=== PATIENT | female | born 1935 | race Caucasian/White ===

== ENCOUNTER → 2017-02-11 | Outpatient (CLI) | payer MEDICARE ==
--- NOTE | 2017-02-12 10:39 | RAD ---
DATE: 02/11/2017 EXAM: DIGITAL SCREEN BILAT W/CAD HISTORY: Routine screening COMPARISON: 01/30/2016 This study was interpreted with the benefit of Computerized Aided Detection (CAD). FINDINGS: Breast Density: DENSE The breast Parenchyma is dense, which could reduce the sensitivity of mammography. Breast parenchyma level density D.. There are no dominant suspicious masses, suspicious microcalcifications or evidence of architectural distortion. Benign-appearing calcifications identified in the bilateral breasts. IMPRESSION: Benign findings BI-RADS CATEGORY: 2 BENIGN FINDING RECOMMENDED FOLLOW-UP: 12M 12 MONTH FOLLOW-UP PQRS compliance statement: Patient information was entered into a reminder system with a target due date 02/11/2018 for the next mammogram. Mammography is a sensitive method for finding small breast cancers, but it does not detect them all and is not a substitute for careful clinical examination. A negative mammogram does not negate a clinically suspicious finding and should not result in delay in biopsying a clinically suspicious abnormality. "Our facility is accredited by the [employer] Mammography [employer]."
== END | disposition home or self-care (01) ==
LOC: MAMMO 08:39
PROVIDERS: ATTEND Family Medicine
DX: Z12.31 Encounter for screening mammogram for malignant neoplasm of breast (principal)
CPT/HCPCS: G0202; 77067

== ENCOUNTER → 2018-02-15 | Outpatient (CLI) | payer MEDICARE | END | disposition home or self-care (01) | LOC: MAMMO 08:44 | DX: Z12.31 Encounter for screening mammogram for malignant neoplasm of breast (principal) | CPT/HCPCS: 77063; 77067 ==

== ENCOUNTER → 2019-02-16 | Outpatient (CLI) | payer MEDICARE ==
--- NOTE | 2019-02-16 11:30 | RAD ---
DATE: 02/16/2019 EXAM: MAMMO MOUNA SCREENING BILATERAL HISTORY: Routine screening COMPARISON: 02/15/2018 This study was interpreted with the benefit of Computerized Aided Detection (CAD). Breast Density: HETERO The breast parenchyma is heterogenously dense, which could reduce sensitivity of mammography. Breast parenchyma level C. FINDINGS: 2-D and 3-D tomosynthesis imaging was performed in CC and MLO projections. No new or enlarging breast densities are seen. There are scattered benign type calcifications. No suspicious microcalcifications have developed. IMPRESSION: Stable mammograms without evidence of malignancy. BI-RADS CATEGORY: 2 BENIGN FINDING(S) RECOMMENDED FOLLOW-UP: 12M 12 MONTH FOLLOW-UP PQRS compliance statement: Patient information was entered into a reminder system with a target due date for the next mammogram. Mammography is a sensitive method for finding small breast cancers, but it does not detect them all and is not a substitute for careful clinical examination. A negative mammogram does not negate a clinically suspicious finding and should not result in delay in biopsying a clinically suspicious abnormality. "Our facility is accredited by the [employer] Mammography [employer]."
== END | disposition home or self-care (01) ==
LOC: MAMMO 10:04
PROVIDERS: ATTEND Family Medicine
DX: Z12.31 Encounter for screening mammogram for malignant neoplasm of breast (principal); N64.89 Other specified disorders of breast
CPT/HCPCS: 77063; 77067

== ENCOUNTER → 2020-05-07 | Outpatient (CLI) | payer MEDICARE ==
--- NOTE | 2020-05-07 17:29 | RAD ---
DATE: 05/07/2020 8:20 AM EXAM: MAMMO MOUNA SCREENING BILATERAL HISTORY: Screening COMPARISON: 02/11/2017, 02/15/2018 and 02/16/2019 Bilateral CC and MLO views of the breasts were performed. Bilateral breast tomosynthesis was performed in CC and MLO projections. This study was interpreted with the benefit of Computerized Aided Detection (CAD). FINDINGS: Breast Density: HETERO The breast parenchyma Is heterogeneously dense, which could reduce sensitivity of mammography. Breast parenchyma level C Negative right mammogram. Focal asymmetry left breast best appreciated on the tomographic views on image 29 of the CC series and image 30 of the MLO series is present with questionable associated architectural distortion. This needs additional imaging with spot compression views in the CC and MLO views with possible targeted ultrasound of the lateral and upper outer quadrant left breast. IMPRESSION: Left breast focal asymmetry, findings for which additional imaging is advised. BI-RADS CATEGORY: 0 INCOMPLETE: NEEDS ADDITIONAL IMAGING EVALUATION AND/OR PRIOR MAMMOGRAMS FOR COMPARISON. RECOMMENDED FOLLOW-UP: ADD ADDITIONAL IMAGING The patient will be contacted to return for additional imaging and a supplemental report will follow. PQRS compliance statement: Patient information was entered into a reminder system with a target due date for the next mammogram. Mammography is a sensitive method for finding small breast cancers, but it does not detect them all and is not a substitute for careful clinical examination. A negative mammogram does not negate a clinically suspicious finding and should not result in delay in biopsying a clinically suspicious abnormality. "Our facility is accredited by the [employer] Mammography [employer]."
== END | disposition home or self-care (01) ==
LOC: MAMMO 08:16
PROVIDERS: ATTEND Family Medicine
DX: Z12.31 Encounter for screening mammogram for malignant neoplasm of breast (principal)
CPT/HCPCS: 77063; 77067

== ENCOUNTER → 2020-05-17 | Outpatient (CLI) | payer MEDICARE ==
--- NOTE | 2020-05-17 11:57 | RAD ---
EXAM: 1. UNILATERAL LEFT DIGITAL DIAGNOSTIC MAMMOGRAPHY. 2. LEFT BREAST ULTRASOUND. HISTORY: Asymmetry on mammographic screening. Additional imaging is requested.. TECHNIQUE: Left full field digital images were obtained in CC and MLO projections with spot compression. Computer-aided detection was applied. Sonography of the left upper outer breast was also performed. COMPARISON: 02/16/2019, 05/07/2020. COMPOSITION: D. The breasts are extremely dense, which lowers the sensitivity of mammography. FINDINGS: The site of concern superolaterally on the left resolves to its former appearance on spot compression. Coarse and vascular calcifications appear benign. There is no suspicious mammographic finding. Sonography of the left upper outer breast reveals a shadowing focus corresponding with a 4.5 mm coarse calcification at the 3:00 position 2 cm from the nipple. There is no suspicious sonographic finding. Dense parenchymal islands are noted throughout the left upper outer quadrant. BI-RADS CATEGORY 2: Benign. RECOMMENDATION: 1. Resume bilateral screening mammography in one year. If mammography demonstrates dense breast tissue (heterogenously dense or extremely dense, category C or D), which could hide abnormalities, and if other risk factors for breast cancer have been identified, supplemental screening tests that may be suggested by the ordering physician may be of benefit. Dense breast tissue, in and of itself, is a relatively common condition. Therefore, this information is not provided to cause undue concern, but rather to raise awareness and to promote discussion with the referring physician regarding the presence of other risk factors, in addition to dense breast tissue. The results of this mammography examination is provided to the patient and referring physician. The patient should contact their referring physician if any questions or concerns exist regarding this report. PQRS compliance statement - Patient information was entered into a reminder system with a target due date for the next mammogram. "Our facility is accredited by the [employer] Mammography [employer]." Electronically signed by: Ridge Mendoza MD (05/17/2020 11:55 AM) [id number]
== END | disposition home or self-care (01) ==
LOC: MAMMO 10:30
PROVIDERS: ATTEND Family Medicine
DX: R92.1 Mammographic calcification found on diagnostic imaging of breast (principal); N63.21 Unspecified lump in the left breast, upper outer quadrant
CPT/HCPCS: 76641; 77065

== ENCOUNTER 2021-01-22 09:20 | Emergency (ER) | payer MEDICARE ==
[~2021-01-22] VITALS: Ht 152.4 cm; Wt 59.0 kg
--- NOTE | 2021-01-22 10:35 | ED.ADGEN ---
Past Medical History Past Medical History: Cancer (basal cell carcinoma of nose), GERD, Hypertension, Renal Disease (stage 3 ckd) Past Surgical History: Other Additional Past Surgical Histo: basal cell carcinoma removed, benign breast cyst removed Smoking Status: Never Smoker Alcohol Use: None Drug Use: None General Adult EDM: Chief Complaint: DIZZY/LIGHT HEADED HPI: HPI: Patient is a 85 year old female brought to the emergency department by her daughter today with complaints of fatigue and lightheadedness that began this morning. Patient reports she also noticed that her thighs feel achy. Patient states that last night she had 2 episodes of vomiting and yesterday she had a few episodes of diarrhea. She denies any blood in her stool or her emesis. Patient reports that for the last month she has had a constant sensation of something being stuck in her throat but denies any difficulty swallowing foods or liquids. Patient denies any shortness of breath, chest pain, palpitations, vision changes, headache, numbness, tingling, abdominal pain, dysuria, hematuri a, or back pain. Patient has had some increased urinary frequency. She denies any fever, cough, shortness of breath, or nasal congestion. Patient reports she has had a runny nose lately when she wakes up in the morning her mouth is extremely dry. Patient's daughter states that earlier when her mother reported feeling lightheaded she had difficulty walking straight. Patient denies any sensation of the room spinning or difficulty speaking. She currently denies any pain. Review of Systems: Review of Systems: Complete ROS is negative unless otherwise noted in HPI. Current Medications: Current Medications Medications (Trade) Dose Ordered Sig/[facility] Start Time Stop Time Status Last Admin Dose Admin Magnesium Sulfate 50 ml @ 50 mls/hr 1X ONCE 01/22/21 13:15 01/22/21 14:14 DC Ondansetron HCl (Zofran) 4 mg 1X ONCE 01/22/21 11:30 01/22/21 11:31 DC Sodium Chloride 1,000 ml @ 1,000 mls/hr 1X ONCE 01/22/21 11:30 01/22/21 12:29 DC 01/22/21 14:05 1,000 MLS/HR Allergies: Allergies: Allergies Coded Allergies Type Severity Reaction Last Updated Verified Sulfa (Sulfonamide Antibiotics) Allergy Intermediate Unknown 01/22/21 Yes Uncoded Allergies Type Severity Reaction Last Updated Verified unspecified antibiotic Allergy Unknown Unknown 01/22/21 Physical Exam: PE: See Above Constitutional: Well developed, well nourished, no acute distress, non-toxic appearance. [] HENT: Normocephalic, atraumatic, bilateral external ears normal, nose normal, posterior pharynx normal, moist mucous membranes. [] Eyes: PERRLA, EOMI, conjunctiva normal, no discharge. [] Neck: Normal range of motion, no stridor. [] Cardiovascular:Heart rate regular rhythm Lungs & Thorax: Respirations even and unlabored, no retractions, no respiratory distress Abdomen: soft, no tenderness, no palpable mass, no pulsatile mass, no rebound tenderness, no guarding, Back: Nontender Skin: Warm, dry, no erythema, no rash. [] Extremities: No cyanosis, ROM intact, no edema. [] Neurologic: Alert and oriented X 3, normal sensory, normal motor, no focal deficits noted. [] Psychologic: Affect normal, judgement normal, mood normal. [] Current Patient Data: Labs: Laboratory Tests Test 01/22/21 10:55 01/22/21 11:05 White Blood Count 20.6 x10^3/uL (4.0-11.0) H Red Blood Count 3.80 x10^6/uL (3.50-5.40) Hemoglobin 12.7 g/dL (12.0-15.5) Hematocrit 36.4 % (36.0-47.0) Mean Corpuscular Volume 96 fL (79-100) Mean Corpuscular Hemoglobin 33 pg (25-35) Mean Corpuscular Hemoglobin Concent 35 g/dL (31-37) Red Cell Distribution Width 12.6 % (11.5-14.5) Platelet Count 229 x10^3/uL (140-400) Neutrophils (%) (Auto) 90 % (31-73) H Lymphocytes (%) (Auto) 3 % (24-48) L Monocytes (%) (Auto) 7 % (0-9) Eosinophils (%) (Auto) 0 % (0-3) Basophils (%) (Auto) 1 % (0-3) Neutrophils # (Auto) 18.5 x10^3/uL (1.8-7.7) H Lymphocytes # (Auto) 0.7 x10^3/uL (1.0-4.8) L Monocytes # (Auto) 1.4 x10^3/uL (0.0-1.1) H Eosinophils # (Auto) 0.0 x10^3/uL (0.0-0.7) Basophils # (Auto) 0.1 x10^3/uL (0.0-0.2) Segmented Neutrophils % 89 % (35-66) H Band Neutrophils % 3 % (0-9) Lymphocytes % 4 % (24-48) L Monocytes % 3 % (0-10) Eosinophils % 1 % (0-5) Platelet Estimate Adequate (ADEQUATE) Sodium Level 141 mmol/L (136-145) Potassium Level 4.2 mmol/L (3.5-5.1) Chloride Level 104 mmol/L (98-107) Carbon Dioxide Level 25 mmol/L (21-32) Anion Gap 12 (6-14) Blood Urea Nitrogen 26 mg/dL (7-20) H Creatinine 1.5 mg/dL (0.6-1.0) H Estimated GFR (Cockcroft-Gault) 33.2 BUN/Creatinine Ratio 17 (6-20) Glucose Level 120 mg/dL (70-99) H Calcium Level 9.6 mg/dL (8.5-10.1) Magnesium Level 1.5 mg/dL (1.8-2.4) L Total Bilirubin 0.6 mg/dL (0.2-1.0) Aspartate Amino Transferase (AST) 23 U/L (15-37) Alanine Aminotransferase (ALT) 20 U/L (14-59) Alkaline Phosphatase 60 U/L (46-116) Troponin I Quantitative < 0.017 ng/mL (0.000-0.055) Total Protein 7.0 g/dL (6.4-8.2) Albumin 4.1 g/dL (3.4-5.0) Albumin/Globulin Ratio 1.4 (1.0-1.7) Urine Collection Type Unknown Urine Color Yellow Urine Clarity Clear Urine pH 7.0 (<5.0-8.0) Urine Specific [place] 1.010 (1.000-1.030) Urine Protein Negative mg/dL (NEG-TRACE) Urine Glucose (UA) Negative mg/dL (NEG) Urine Ketones (Stick) Negative mg/dL (NEG) Urine Blood Moderate (NEG) Urine Nitrite Negative (NEG) Urine Bilirubin Negative (NEG) Urine Urobilinogen Dipstick 0.2 mg/dL (0.2 mg/dL) Urine Leukocyte Esterase Negative (NEG) Urine RBC 6-10 /HPF (0-2) Urine WBC 0 /HPF (0-4) Urine Bacteria 0 /HPF (0-FEW) Laboratory Tests 01/22/21 10:55 Laboratory Tests 01/22/21 10:55 Vital Signs: Vital Signs Date Time Temp Pulse Resp B/P (MAP) Pulse Ox O2 Delivery O2 Flow Rate FiO2 01/22/21 14:47 90 16 94 01/22/21 10:29 98.7 141/61 (87) Room Air 98.7 EKG: EK-sinus rhythm, abnormal left axis deviation, left anterior fascicular block, RVH with repolarization abnormality, rate 91, no STEMI read by Dr. Mariscal [][] Heart Score: C/O Chest Pain: No Radiology/Procedures: Radiology/Procedures: PROCEDURE: CT HEAD WO CONTRAST Exam Date: 01/22/2021 10:[address] HEAD/BRAIN WO Indication: Reason: dizzy / Spl. Instructions: / History: TECHNIQUE: Head CT was performed without intravenous contrast. One or more of the following dose reduction techniques were utilized: *Automated exposure control (AEC) *Adjustment of mA and/or kV according to patient size *Use of iterative reconstruction technique *CT scan done according to ALARA, or ALARA/IMAGE GENTLY FINDINGS: The ventricles and sulci are prominent consistent with cerebral volume loss. Patchy ill-defined low attenuation areas in the subcortical and periventricular white matter bilaterally are consistent with microvascular disease. There is no evidence of acute intracranial hemorrhage, extra-axial collection, mass effect, midline shift, or acute territorial infarct. No lesion of the skull base or the calvarium is seen. The visualized paranasal sinuses, mastoid air cells and orbits are normal in appearance. IMPRESSION: No evidence for acute intracranial abnormality. Volume loss and microvascular disease. Electronically signed by: Jose Alejandro Raza MD (01/22/2021 11:11 AM) [id number] PROCEDURE: CHEST AP ONLY XR CHEST 1V History: Lightheadedness, nausea and vomiting. Comparison: None. Technique: AP radiograph of the chest. Findings: The lungs are adequately and symmetrically inflated. No airspace consolidation, pleural effusion or pneumothorax. Normal heart size with calcified aorta. Pulmonary vasculature is within normal limits. Osseous structures and soft tissues are unremarkable. Impression: 1. No acute cardiopulmonary process. Electronically signed by: Dieudonne Palomo MD (01/22/2021 11:37 AM) [facility] PROCEDURE: CT ABDOMEN PELVIS WO CONTRAST Exam Date: 01/22/2021 1:[address] ABDOMEN+PELVIS WO Indication: Reason: leukocytosis, n/v/d, light headed / Spl. Instructions: / History: TECHNIQUE: CT examination of the abdomen and pelvis was performed without oral or intravenous contrast. One or more of the following dose reduction techniques were utilized: *Automated exposure control (AEC) *Adjustment of mA and/or kV according to patient size *Use of iterative reconstruction technique *CT scan done according to ALARA, or ALARA/IMAGE GENTLY FINDINGS: There are patchy infiltrates in the right lung base. Mild bibasilar subsegmental atelectasis is noted. There is a 10 mm nodule in the right lung base on image 10 series 2. Coronary artery calcifications are noted. There is a moderate hiatal hernia. Calcified granulomas are seen in the liver and spleen. The liver, gallbladder, spleen, pancreas, and adrenal glands are normal. The kidneys are normal bilaterally. No hydronephrosis or hydroureter is seen. No urinary tract calculi are seen. Urinary bladder is normal in appearance. Diverticulosis coli is seen without bowel obstruction or inflammation. No evidence for acute appendicitis. Mild to moderate atherosclerotic calcifications are seen. No lymphadenopathy or ascites is seen. Degenerative changes are seen in the spine. IMPRESSION: No acute intra-abdominal pathology. Diverticulosis coli without bowel inflammation or obstruction. Patchy infiltrates in the right lung base with mild bibasilar subsegmental atelectasis. 10 mm nodule in the right lung base. According to the 2017 Fleischner Society Guidelines for Management of Incidental Pulmonary Nodules Detected on CT, for non-calcified solid nodules > 8 mm in diameter a follow up CT is recommended in 3 months. Alternatively, further evaluation with PET/CT and/or tissue sampling could also be considered. Electronically signed by: Jose Alejandro Raza MD (01/22/2021 1:46 PM) [id number] Course & Med Decision Making: Course & Med Decision Making Pertinent Labs and Imaging studies reviewed. (See chart for details) 85-year-old female presents emergency department with multiple complaints. CT of the patient's head revealed no acute changes, orthostatic blood pressures were negative. CBC was concerning for leukocytosis, white blood cell count was 20.6, 89 segs, 3 bands; CMP revealed a BUN of 26, creatinine of 1.5, patient has stage III CKD, patient's magnesium level is 1.5, glucose is 120. Patient was given 2 g of IV mag in the emergency department over the 1 hour; UA revealed 6-10 red blood cells, no bacteria and no white blood cells Chest x-ray was unremarkable. CT the abdomen pelvis revealed no acute process in the abdomen or pelvis, there were patchy infiltrates in the right lung base with mild bibasilar atelectasis, the patient denied any cough or respiratory symptoms. I offered to admit the francisco lewis for her leukocytosis and body aches. The patient was also evaluated by and offered admission by Dr. Gonzalez. 1415-Dr. Gonzalez at bedside for consultation. Patient declines admission at this time. Will send patient home with nausea vomiting, diarrhea, and hypomagnesia instructions. Dr. Gonzalez provided patient with a prescription for Zofran to take as needed for nausea. Patient and her daughter were instructed to return to the ER if symptoms worsen or fever develop. Patient and her daughter verbalized an understanding of home care, medications, follow-up, and return to ED instructions and were in agreement with the plan of care. [] Dragon Disclaimer: Dragon Disclaimer: This electronic medical record was generated, in whole or in part, using a voice recognition dictation system. Departure Departure Impression: Primary Impression: Nausea, vomiting, and diarrhea Additional Impressions: Hypomagnesemia Episode of generalized weakness CKD (chronic kidney disease) Disposition: 01 HOME / SELF CARE / HOMELESS Condition: STABLE Referrals: SAMMY BONILLA MD (PCP) Patient Instructions: Diarrhea, [id number], Diet for Diarrhea, Adult, Hypomagnesemia, Nausea and Vomiting, [id number] Additional Instructions: Fill prescriptions and use them as directed. Recommend clear fluids for the next 24 hours. Then you may advance to bland foods such as bananas, rice, applesauce, and dry toast. Follow-up with your primary care doctor in the next 1-2 days. Return to the emergency room if your symptoms worsen or if fever develops. Scripts Ondansetron (ONDANSETRON ODT) 4 Mg Tab.rapdis 1 TAB PO PRN Q6-8HRS PRN for NAUSEA/VOMITING for 4 Days, #16 TAB 0 Refills Prov: MONICA REYNOSO APRN 01/22/21 Attending Signature Attending Signature I have participated in the care of this patient and I have reviewed and agree with all pertinent clinical information above including history, exam, and recommendations. Problem Qualifiers Additional Impressions: CKD (chronic kidney disease) Chronic kidney disease stage: stage 3 (moderate) Chronic kidney disease stage 3 subtype: unspecified whether 3a or 3b Qualified Codes: N18.30 - Chronic kidney disease, stage 3 unspecified MONICA REYNOSO APRN Jan 22, 2021 10:35 HELEN MARISCAL MD Jan 22, 2021 18:34
--- NOTE | 2021-01-22 11:13 | RAD ---
Exam Date: 01/22/2021 10:[address] HEAD/BRAIN WO Indication: Reason: dizzy / Spl. Instructions: / History: TECHNIQUE: Head CT was performed without intravenous contrast. One or more of the following dose re duction techniques were utilized: *Automated exposure control (AEC) *Adjustment of mA and/or kV according to patient size *Use of iterative reconstruction technique *CT scan done according to ALARA, or ALARA/IMAGE GENTLY FINDINGS: The ventricles and sulci are prominent consistent with cerebral volume loss. Patchy ill-defined low attenuation areas in the subcortical and periventricular white matter bilaterally are consistent with microvascular disease. There is no evidence of acute intracranial hemorrhage, extra-axial collecti on, mass effect, midline shift, or acute territorial infarct. No lesion of the skull base or the calv arium is seen. The visualized paranasal sinuses, mastoid air cells and orbits are normal in appearanc e. IMPRESSION: No evidence for acute intracranial abnormality. Volume loss and microvascular disease. Electronically signed by: Jose Alejandro Raza MD (01/22/2021 11:11 AM) [id number]
[2021-01-22 11:14] LABS: BASO # 0.1 x10^3/uL (0.0-0.2); BASO % 1 % (0-3); EOS % 0 % (0-3); HEMATOCRIT 36.4 % (36.0-47.0); HEMOGLOBIN 12.7 g/dL (12.0-15.5); LYMPH # 0.7 x10^3/uL (1.0-4.8); LYMPH % 3 % (24-48); MEAN CORPUSCULAR HEMOGLOBIN 33 pg (25-35); MEAN CORPUSCULAR HGB CONC 35 g/dL (31-37); MEAN CORPUSCULAR VOLUME 96 fL (79-100); MONO # 1.4 x10^3/uL (0.0-1.1); MONO % 7 % (0-9); NEUT # 18.5 x10^3/uL (1.8-7.7); NEUT % 90 % (31-73); PLATELET COUNT 229 x10^3/uL (140-400); RED CELL DISTRIBUTION WIDTH 12.6 % (11.5-14.5); WHITE BLOOD COUNT 20.6 x10^3/uL (4.0-11.0)
[2021-01-22 11:21] LABS: BILIRUBIN,URINE NEGATIVE (NEG); CLARITY,URINE CLEAR; COLOR,URINE YELLOW; NITRITE,URINE NEGATIVE (NEG); PROTEIN,URINE NEGATIVE (NEG-TRACE); UROBILINOGEN,URINE 0.2 mg/dL (0.2 mg/dL)
[2021-01-22] MEDS ORDERED: IV NORMAL SALINE 1000ML BAG 1,000 ML IV ONE (11:30)
[2021-01-22] MEDS ORDERED: ONDANSETRON PF 4 MG/2 ML VIAL. IV ONE (11:30)
[2021-01-22 11:36] LABS: BACTERIA,URINE 0 /HPF (0-FEW); WBC,URINE 0 /HPF (0-4)
[2021-01-22 11:39] LABS: CALCIUM 9.6 mg/dL (8.5-10.1); CREATININE 1.5 mg/dL (0.6-1.0); GFR 33.2; POTASSIUM 4.2 mmol/L (3.5-5.1)
--- NOTE | 2021-01-22 11:39 | RAD ---
XR CHEST 1V History: Lightheadedness, nausea and vomiting. Comparison: None. Technique: AP radiograph of the chest. Findings: The lungs are adequately and symmetrically inflated. No airspace consolidation, pleural effusion or p neumothorax. Normal heart size with calcified aorta. Pulmonary vasculature is within normal limits. O sseous structures and soft tissues are unremarkable. Impression: 1. No acute cardiopulmonary process. Electronically signed by: Dieudonne Palomo MD (01/22/2021 11:37 AM) [facility]
[2021-01-22 11:54] LABS: ALBUMIN 4.1 g/dL (3.4-5.0); ALBUMIN/GLOBULIN RATIO 1.4 (1.0-1.7); MAGNESIUM 1.5 mg/dL (1.8-2.4); TOTAL BILIRUBIN 0.6 mg/dL (0.2-1.0)
[2021-01-22 12:20] LABS: % BANDS 3 % (0-9); % EOS 1 % (0-5); % LYMPHS 4 % (24-48); % MONOS 3 % (0-10); % SEGS 89 % (35-66); PLT ESTIMATE ADEQUATE (ADEQUATE)
[2021-01-22] MEDS ORDERED: MAGNESIUM SULFATE 2GM 50 ML IV ONE (13:15)
--- NOTE | 2021-01-22 13:48 | RAD ---
Exam Date: 01/22/2021 1:[address] ABDOMEN+PELVIS WO Indication: Reason: leukocytosis, n/v/d, light headed / Spl. Instructions: / History: TECHNIQUE: CT examination of the abdomen and pelvis was performed without oral or intravenous contra st. One or more of the following dose reduction techniques were utilized: *Automated exposure control (AEC) *Adjustment of mA and/or kV according to patient size *Use of iterative reconstruction technique *CT scan done according to ALARA, or ALARA/IMAGE GENTLY FINDINGS: There are patchy infiltrates in the right lung base. Mild bibasilar subsegmental atelectasis is noted . There is a 10 mm nodule in the right lung base on image 10 series 2. Coronary artery calcifications are noted. There is a moderate hiatal hernia. Calcified granulomas are seen in the liver and spleen. The liver, gallbladder, spleen, pancreas, and adrenal glands are normal. The kidneys are normal bilaterally. No hydronephrosis or hydroureter is seen. No urinary tract calc priscila are seen. Urinary bladder is normal in appearance. Diverticulosis coli is seen without bowel obstruction or inflammation. No evidence for acute appendic itis. Mild to moderate atherosclerotic calcifications are seen. No lymphadenopathy or ascites is seen. Degenerative changes are seen in the spine. IMPRESSION: No acute intra-abdominal pathology. Diverticulosis coli without bowel inflammation or obstruction. Patchy infiltrates in the right lung base with mild bibasilar subsegmental atelectasis. 10 mm nodule in the right lung base. According to the 2017 Fleischner Society Guidelines for Manageme nt of Incidental Pulmonary Nodules Detected on CT, for non-calcified solid nodules > 8 mm in diameter a follow up CT is recommended in 3 months. Alternatively, further evaluation with PET/CT and/or tiss ue sampling could also be considered. Electronically signed by: Jose Alejandro Raza MD (01/22/2021 1:46 PM) [id number]
[2021-01-22] MEDS ORDERED: ONDA4TAB12 PO (14:23)
[2021-01-22 14:47] VITALS: BP 144/63
--- NOTE | 2021-01-22 14:59 | PDOC2 ---
CONSULT Date of Consult Date of Consult DATE: 01/22/21 TIME: 14:38 Reason for Consult Reason for Consult: N/V/D Referring Physician Referring Physician: Mohini Marion APRN Identification/Chief Complaint Chief Complaint Nausea, vomiting, diarrhea Source Source: Caregiver, Chart review, Patient History of Present Illness Reason for Visit: Ms Henderson is an 85yo F w/ PMHx GERD, Hypertension, stage 3 ckd who is brought to the emergency department by her daughter today with complaints of nausea and vomiting with diarrhea that began this morning. In the middle of the night she had 2 episodes of vomiting and yesterday she had a few episodes of diarrhea. She does note she ate takeout Malagasy food during the day for the first time in several months and then reheated the rice and had a "funny feeling" afterwards, she was tossing and turning in bed with some abdominal cramping and woke up after midnight with dry heaving, and vomited. She coughed once after vomiting, then had another episode of vomiting and diarrhea x2. Patient reports she also noticed that her thighs are cramping. She denies any blood in her stool or her emesis. Patient reports that for the last month she has had a constant sensation of a "popcorn kernel" stuck in her throat, notes it is intermittent and annoying. Patient denies any shortness of breath, chest pain, palpitations, vision changes, headache, numbness, tingling, abdominal pain, dysuria, hematuria, or ba ck pain. Patient has had some increased urinary frequency. She denies any fever, cough, shortness of breath, or nasal congestion. No neurologic deficits. She currently denies any pain. She was also complaining of feeling dizzy and lightheaded and therefore underwent a CT head which showed no acute abnormality. Chest radiograph with no abnormality. On labs her WBC was 20, CR 1.5 consistent with her chronic kidney disease and magnesium 1.5. Her symptoms resolved on their own and she was started on IV fl uids and IV magnesium. She underwent a CT abdomen pelvis which showed no acute abnormality but did note a right lower lobe haziness as well as a lung nodule. EKG normal sinus rhythm rate of 91 bpm left anterior fascicular block noted. Meets criteria for left axis deviation. No ST segment or T wave abnormalities to indicate acute ischemia. Troponin 0. Called for consultation regarding possible admission. Past Medical History Cardiovascular: HTN GI: GERD Renal/: Chronic renal insuff Past Surgical History Past Surgical History: Other (Basal cell cancer excision) Family History Family History: Kidney Disease Social History No ALCOHOL: none Drugs: None Lives: Alone Domestic Violence: Neg Current Medications Current Medications Current Medications Sodium Chloride 1,000 ml @ 1,000 mls/hr 1X ONCE IV Last administered on 01/22/21at 14:05; Start 01/22/21 at 11:30; Stop 01/22/21 at 12:29; Status DC Ondansetron HCl (Zofran) 4 mg 1X ONCE IV ; Start 01/22/21 at 11:30; Stop 01/22/21 at 11:31; Status DC Magnesium Sulfate 50 ml @ 50 mls/hr 1X ONCE IV ; Start 01/22/21 at 13:15; Stop 01/22/21 at 14:14; Status DC Active Scripts Active Ondansetron Odt (Ondansetron) 4 Mg Tab.rapdis 1 Tab PO PRN Q6-8HRS PRN 4 Days Allergies Allergies: Coded Allergies: Sulfa (Sulfonamide Antibiotics) (Verified Allergy, Intermediate, Unknown, 01/22/21) Uncoded Allergies: unspecified antibiotic (Allergy, Unknown, Unknown, 01/22/21) n ROS General: YES: Fatigue, Malaise; No: Chills, Night Sweats, Appetite, Other PSYCHOLOGICAL ROS: No: Anxiety, Behavioral Disorder, Concentration difficultie, Decreased libido, Depression, Disorientation, Hallucinations, Hostility, Ir ritablity, Memory difficulties, Mood Swings, Obsessive thoughts, Physical abuse, Sexual abuse, Sleep disturbances, Suicidal ideation, Other Eyes: No Blurry vision, No Decreased vision, No Double vision, No Dry eyes, No Excessive tearing, No Eye Pain, No Itchy Eyes, No Loss of vision, No Photophobia, No Scotomata, No Uses contacts, No Uses glasses, No Other HEENT: No: Heacaches, Visual Changes, Hearing change, Nasal congestion, Nasal discharge, Oral lesions, Sinus pain, Sore Throat, Epistaxis, Sneezing, Snoring, Tinnitus, Vertigo, Vocal changes, Other ALLERGY AND IMMUNOLOGY: No: Hives, Insect Bite Sensitivity, Itchy/Watery Eyes, Nasal Congestion, Post Nasal Drip, Seasonal Allergies, Other Hematological and Lymphatic: No: Bleeding Problems, Blood Clots, Blood Transfusions, Brusing, Night Sweats, Pallor, Swollen Lymph Nodes, Other ENDOCRINE: No: Breast Changes, Galactorrhea, Hair Pattern Changes, Hot Flashes, Malaise/lethargy, Mood Swings, Palpitations, Polydipsia/polyuria, Skin Changes, Temperature Intolerance, Unexpected Weight Changes, Other Breast: No New/Changing Breast Lumps, No Nipple changes, No Nipple discharge, No Other Respiratory: No: Cough, Hemoptysis, Orthopnea, Pleuritic Pain, Shortness of breath, SOB with excertion, Sputum Changes, Stridor, Tachypnea, Wheezing, Other Cardiovascular: No Chest Pain, No Palpitations, No Orthopnea, No Paroxysmal Noc. Dyspnea, No Edema, No Lt Headedness, No Other Gastrointestinal: Yes Nausea, Yes Vomiting, Yes Diarrhea; No Abdominal Pain, No Constipation, No Melena, No Hematochezia, No Other Genitourinary: No Dysuria, No Frequency, No Incontinence, No Hematuria, No R etention, No Discharge, No Urgency, No Pain, No Flank Pain, No Other, No , No , No , No , No , No , No Musculoskeletal: No Gait Disturbance, No Joint Pain, No Joint Stiffness, No Joint Swelling, No Muscle Pain, No Muscular Weakness, No Pain In:, No Swelling In:, No Other Neurological: No Behavorial Changes, No Bowel/Bladder ControlChng, No Confusion, No Dizziness, No Gait Disturbance, No Headaches, No Impaired Coord/balance, No Memory Loss, No Numbness/Tingling, No Seizures, No Speech Problems, No Tremors, No Visual Changes, No Weakness, No Other Skin: No Dry Skin, No Eczema, No Hair Changes, No Lumps, No Mole Changes, No Mottling, No Nail Changes, No Pruritus, No Rash, No Skin Lesion Changes, No Other, No Acne Physical Exam General: Alert, Oriented X3, Cooperative, No acute distress HEENT: Atraumatic, PERRLA, EOMI, Mucous membr. moist/pink Lungs: Clear to auscultation, Normal air movement Heart: Regular rate, Normal S1, Normal S2, No murmurs Abdomen: Normal bowel sounds, Soft, No tenderness, No hepatosplenomegaly, No masses Extremities: No clubbing, No cyanosis, No edema, Normal pulses, No tenderness/swelling Skin: No rashes, No breakdown Neuro: Normal gait, Normal speech, Strength at 5/5 X4 ext, Normal tone, Sensation intact, Cranial nerves 3-12 NL, Reflexes 2+ Psych/Mental Status: Mental status NL, Mood NL MUSCULOSKELETAL: No joint tenderness, No deformity, No swelling, No muscular tenderness noted, Full range of motion without pain Vitals VITALS Vital Signs Date Time Temp Pulse Resp B/P (MAP) Pulse Ox O2 Delivery O2 Flow Rate FiO2 01/22/21 10:29 98.7 93 16 141/61 (87) 96 Room Air 98.7 Labs Labs Laboratory Tests Test 01/22/21 10:55 01/22/21 11:05 White Blood Count 20.6 x10^3/uL (4.0-11.0) Red Blood Count 3.80 x10^6/uL (3.50-5.40) Hemoglobin 12.7 g/dL (12.0-15.5) Hematocrit 36.4 % (36.0-47.0) Mean Corpuscular Volume 96 fL (79-100) Mean Corpuscular Hemoglobin 33 pg (25-35) Mean Corpuscular Hemoglobin Concent 35 g/dL (31-37) Red Cell Distribution Width 12.6 % (11.5-14.5) Platelet Count 229 x10^3/uL (140-400) Neutrophils (%) (Auto) 90 % (31-73) Lymphocytes (%) (Auto) 3 % (24-48) Monocytes (%) (Auto) 7 % (0-9) Eosinophils (%) (Auto) 0 % (0-3) Basophils (%) (Auto) 1 % (0-3) Neutrophils # (Auto) 18.5 x10^3/uL (1.8-7.7) Lymphocytes # (Auto) 0.7 x10^3/uL (1.0-4.8) Monocytes # (Auto) 1.4 x10^3/uL (0.0-1.1) Eosinophils # (Auto) 0.0 x10^3/uL (0.0-0.7) Basophils # (Auto) 0.1 x10^3/uL (0.0-0.2) Segmented Neutrophils % 89 % (35-66) Band Neutrophils % 3 % (0-9) Lymphocytes % 4 % (24-48) Monocytes % 3 % (0-10) Eosinophils % 1 % (0-5) Platelet Estimate Adequate (ADEQUATE) Sodium Level 141 mmol/L (136-145) Potassium Level 4.2 mmol/L (3.5-5.1) Chloride Level 104 mmol/L (98-107) Carbon Dioxide Level 25 mmol/L (21-32) Anion Gap 12 (6-14) Blood Urea Nitrogen 26 mg/dL (7-20) Creatinine 1.5 mg/dL (0.6-1.0) Estimated GFR (Cockcroft-Gault) 33.2 BUN/Creatinine Ratio 17 (6-20) Glucose Level 120 mg/dL (70-99) Calcium Level 9.6 mg/dL (8.5-10.1) Magnesium Level 1.5 mg/dL (1.8-2.4) Total Bilirubin 0.6 mg/dL (0.2-1.0) Aspartate Amino Transf (AST/SGOT) 23 U/L (15-37) Alanine Aminotransferase (ALT/SGPT) 20 U/L (14-59) Alkaline Phosphatase 60 U/L (46-116) Troponin I Quantitative < 0.017 ng/mL (0.000-0.055) Total Protein 7.0 g/dL (6.4-8.2) Albumin 4.1 g/dL (3.4-5.0) Albumin/Globulin Ratio 1.4 (1.0-1.7) Urine Collection Type Unknown Urine Color Yellow Urine Clarity Clear Urine pH 7.0 (<5.0-8.0) Urine Specific [place] 1.010 (1.000-1.030) Urine Protein Negative mg/dL (NEG-TRACE) Urine Glucose (UA) Negative mg/dL (NEG) Urine Ketones (Stick) Negative mg/dL (NEG) Urine Blood Moderate (NEG) Urine Nitrite Negative (NEG) Urine Bilirubin Negative (NEG) Urine Urobilinogen Dipstick 0.2 mg/dL (0.2 mg/dL) Urine Leukocyte Esterase Negative (NEG) Urine RBC 6-10 /HPF (0-2) Urine WBC 0 /HPF (0-4) Urine Bacteria 0 /HPF (0-FEW) Laboratory Tests Test 01/22/21 10:55 01/22/21 11:05 White Blood Count 20.6 x10^3/uL (4.0-11.0) Red Blood Count 3.80 x10^6/uL (3.50-5.40) Hemoglobin 12.7 g/dL (12.0-15.5) Hematocrit 36.4 % (36.0-47.0) Mean Corpuscular Volume 96 fL (79-100) Mean Corpuscular Hemoglobin 33 pg (25-35) Mean Corpuscular Hemoglobin Concent 35 g/dL (31-37) Red Cell Distribution Width 12.6 % (11.5-14.5) Platelet Count 229 x10^3/uL (140-400) Neutrophils (%) (Auto) 90 % (31-73) Lymphocytes (%) (Auto) 3 % (24-48) Monocytes (%) (Auto) 7 % (0-9) Eosinophils (%) (Auto) 0 % (0-3) Basophils (%) (Auto) 1 % (0-3) Neutrophils # (Auto) 18.5 x10^3/uL (1.8-7.7) Lymphocytes # (Auto) 0.7 x10^3/uL (1.0-4.8) Monocytes # (Auto) 1.4 x10^3/uL (0.0-1.1) Eosinophils # (Auto) 0.0 x10^3/uL (0.0-0.7) Basophils # (Auto) 0.1 x10^3/uL (0.0-0.2) Segmented Neutrophils % 89 % (35-66) Band Neutrophils % 3 % (0-9) Lymphocytes % 4 % (24-48) Monocytes % 3 % (0-10) Eosinophils % 1 % (0-5) Platelet Estimate Adequate (ADEQUATE) Sodium Level 141 mmol/L (136-145) Potassium Level 4.2 mmol/L (3.5-5.1) Chloride Level 104 mmol/L (98-107) Carbon Dioxide Level 25 mmol/L (21-32) Anion Gap 12 (6-14) Blood Urea Nitrogen 26 mg/dL (7-20) Creatinine 1.5 mg/dL (0.6-1.0) Estimated GFR (Cockcroft-Gault) 33.2 BUN/Creatinine Ratio 17 (6-20) Glucose Level 120 mg/dL (70-99) Calcium Level 9.6 mg/dL (8.5-10.1) Magnesium Level 1.5 mg/dL (1.8-2.4) Total Bilirubin 0.6 mg/dL (0.2-1.0) Aspartate Amino Transf (AST/SGOT) 23 U/L (15-37) Alanine Aminotransferase (ALT/SGPT) 20 U/L (14-59) Alkaline Phosphatase 60 U/L (46-116) Troponin I Quantitative < 0.017 ng/mL (0.000-0.055) Total Protein 7.0 g/dL (6.4-8.2) Albumin 4.1 g/dL (3.4-5.0) Albumin/Globulin Ratio 1.4 (1.0-1.7) Urine Collection Type Unknown Urine Color Yellow Urine Clarity Clear Urine pH 7.0 (<5.0-8.0) Urine Specific [place] 1.010 (1.000-1.030) Urine Protein Negative mg/dL (NEG-TRACE) Urine Glucose (UA) Negative mg/dL (NEG) Urine Ketones (Stick) Negative mg/dL (NEG) Urine Blood Moderate (NEG) Urine Nitrite Negative (NEG) Urine Bilirubin Negative (NEG) Urine Urobilinogen Dipstick 0.2 mg/dL (0.2 mg/dL) Urine Leukocyte Esterase Negative (NEG) Urine RBC 6-10 /HPF (0-2) Urine WBC 0 /HPF (0-4) Urine Bacteria 0 /HPF (0-FEW) Images Images There are patchy infiltrates in the right lung base. Mild bibasilar subsegmental atelectasis is noted. There is a 10 mm nodule in the right lung base on image 10 series 2. Coronary artery calcifications are noted. There is a moderate hiatal hernia. Calcified granulomas are seen in the liver and spleen. The liver, gallbladder, spleen, pancreas, and adrenal glands are normal. The kidneys are normal bilaterally. No hydronephrosis or hydroureter is seen. No urinary tract calculi are seen. Urinary bladder is normal in appearance. Diverticulosis coli is seen without bowel obstruction or inflammation. No evidence for acute appendicitis. Mild to moderate atherosclerotic calcifications are seen. No lymphadenopathy or ascites is seen. Degenerative changes are seen in the spine. IMPRESSION: No acute intra-abdominal pathology. Diverticulosis coli without bowel inflammation or obstruction. Patchy infiltrates in the right lung base with mild bibasilar subsegmental atelectasis. 10 mm nodule in the right lung base. According to the 2017 Fleischner Society Guidelines for Management of Incidental Pulmonary Nodules Detected on CT, for non-calcified solid nodules > 8 mm in diameter a follow up CT is recommended in 3 months. Alternatively, further evaluation with PET/CT and/or tissue sampling could also be considered. Assessment/Plan Assessment/Plan A/P: Nausea, vomiting, diarrhea - likely gastroenteritis from toxigenic food poisoni ng, self-limited. Likely etiology of large leukocytosis and hypomagnesemia. No indication for antibiotics Leg cramping -due to hypomagnesemia. Improved with replacement Lightheadedness and dizziness -related to hypomagnesemia in the setting of diarrhea and vomiting. Hypomagnesemia -likely etiology of cramping. Advised to back off on PPI Abnormal CT chest - lung nodule in right lower lobe needs outpatient follow-up in 3 months. Hazy changes not consistent with pneumonia patient is clear on auscultation no cough. Leukocytosis - meets SIRS criteria, no clear bacterial infectious source, this is likely self-limited gastroenteritis. FEN - General diet Dispo -replace magnesium finish IV fluids. I discussed reasons to return to the hospital and is okay with the discharge with as needed Zofran. Likely a self- limiting gastroenteritis should follow up with her PCP in a week for BMP magn esium and CBC and 3-month follow-up for chest imaging for 10 mm lung nodule. I discussed with patient and daughter bedside. ASMITA RAWLS MD Jan 22, 2021 14:59
== END 2021-01-22 15:04 | disposition home or self-care (01) ==
LOC: ER 09:20
DX: R11.2 Nausea with vomiting, unspecified (principal); R19.7 Diarrhea, unspecified; E83.42 Hypomagnesemia; R53.1 Weakness; I12.9 Hypertensive chronic kidney disease with stage 1 through stage 4 chronic kidney disease, or unspecified chronic kidney disease; N18.30 Chronic kidney disease, stage 3 unspecified; Z98.890 Other specified postprocedural states; Z85.9 Personal history of malignant neoplasm, unspecified; Z88.2 Allergy status to sulfonamides; Z88.8 Allergy status to other drugs, medicaments and biological substances
CPT/HCPCS: 36415; 70450; 71045; 74176; 80053; 81001; 83735; 84484; 85007; 85025; 93005; 96361; 96365; 99285; J7030

== ENCOUNTER → 2021-08-01 | Outpatient (CLI) | payer MEDICARE ==
[~2021-08-01] MED LIST: ONDA4TAB12 PO
--- NOTE | 2021-08-01 15:23 | KCIC ---
XR HAND_RIGHT 2 VIEWS 08/01/2021 Reason: Rt hand pain, synovitis. / Spl. Instructions: Pain to 3rd-4th digits Comparison: None Technique: 2 views of the right hand Findings: No acute fracture or dislocation. There is joint space narrowing/loss and osteophytosis at the interp halangeal joints. There is soft tissue swelling at the proximal interphalangeal joint of the fourth d igit. No periarticular erosions. 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 Electronically signed by: Rigoberto Lopez (08/01/2021 3:20 PM) [id number]
== END ==
LOC: KCIC 11:14
PROVIDERS: ATTEND Family Medicine
DX: M25.741 Osteophyte, right hand (principal); M65.841 Other synovitis and tenosynovitis, right hand; M79.89 Other specified soft tissue disorders
CPT/HCPCS: 73120

== ENCOUNTER → 2021-10-07 | Outpatient (CLI) | payer MEDICARE ==
--- NOTE | 2021-10-07 16:21 | RAD ---
DATE: 10/07/2021 9:00 AM EXAM: MG BILAT SCREEN+MUONA HISTORY: 86 year-old asymptomatic female presents for routine screening mammogram. History of benign right breast biopsy. No personal history of breast cancer. Family history of breast cancer in daught er age 59. COMPARISON: 05/07/2020 and 02/15/2018 Bilateral CC and MLO views of the breasts were performed. Bilateral breast tomosynthesis was performe d in CC and MLO projections. This study was interpreted with the benefit of Computerized Aided Detection (CAD). FINDINGS: Breast Density: DENSE The breast Parenchyma is dense, which could reduce the sensitivity of mammogra phy. Breast parenchyma level density D. No suspicious masses, microcalcifications or architectural distortion is present to suggest malignanc y in either breast. The visualized axillae are unremarkable. IMPRESSION: No mammographic evidence of malignancy. BI-RADS CATEGORY: 2 BENIGN FINDING(S) RECOMMENDED FOLLOW-UP: Annual screening mammography is recommended, unless clinically indicated soone r based on symptoms or change in physical exam. PQRS compliance statement: Patient information was entered into a reminder system with a target due d ate 10/07/2022 for the next mammogram. Mammography is a sensitive method for finding small breast cancers, but it does not detect them all a nd is not a substitute for careful clinical examination. A negative mammogram does not negate a clin ically suspicious finding and should not result in delay in biopsying a clinically suspicious abnorma lity. "Our facility is accredited by the [employer] Mammography Program." Electronically signed by: Scotty Holman DO (10/07/2021 4:18 PM) [id number]
== END ==
LOC: MAMMO 09:02
PROVIDERS: ATTEND Family Medicine
DX: Z12.31 Encounter for screening mammogram for malignant neoplasm of breast (principal)
CPT/HCPCS: 77063; 77067

== ENCOUNTER 2022-01-08 09:30 | Inpatient (IN) | payer MEDICARE ==
[~2022-01-08] VITALS: Ht 154.9 cm; Wt 61.2 kg
--- NOTE | 2022-01-08 09:52 | PHYS DOC ---
Past Medical History Past Medical History: Cancer, GERD, Hypertension, Renal Disease Additional Past Medical Histor: skin cancer, kidney disease Past Surgical History: Other Additional Past Surgical Histo: basal cell carcinoma removed, benign breast cyst removed Smoking Status: Never Smoker Alcohol Use: None Drug Use: None General Adult EDM: Chief Complaint: NAUSEA/VOMITING/DIARRHEA HPI: HPI: Patient is a 86 year old presents with fever shortness of breath nausea vomiting. Patient also reports worsening nasal congestion. No known sick contacts. Patient is fully vaccinated for Covid. Review of Systems: Review of Systems: Constitutional: Fever generalized weakness Eyes: Denies change in visual acuity. [] HENT: Nasal congestion Respiratory: Shortness of breath dyspnea on exertion Cardiovascular: Denies chest pain or edema. [] GI: Nausea vomiting no diarrhea no change in stools : Denies dysuria. [] No flank pain Musculoskeletal: Denies back pain or joint pain. [] Integument: Denies rash. [] Neurologic: Denies headache, focal weakness or sensory changes. [] Endocrine: Denies polyuria or polydipsia. [] Lymphatic: Denies swollen glands. [] Psychiatric: Denies depression or anxiety. [] Heart Score: C/O Chest Pain: No Risk Factors: Risk Factors: DM, Current or recent (<one month) smoker, HTN, HLP, family history of CAD, obesity. Risk Scores: Score 0 - 3: 2.5% MACE over next 6 weeks - Discharge Home Score 4 - 6: 20.3% MACE over next 6 weeks - Admit for Clinical Observation Score 7 - 10: 72.7% MACE over next 6 weeks - Early Invasive Strategies Allergies: Allergies: Allergies Coded Allergies Type Severity Reaction Last Updated Verified Sulfa (Sulfonamide Antibiotics) Allergy Intermediate Unknown 01/22/21 Yes Uncoded Allergies Type Severity Reaction Last Updated Verified unspecified antibiotic Allergy Unknown Unknown 01/22/21 Physical Exam: PE: Constitutional: Well developed, well nourished, no acute distress, non-toxic appearance. [] HENT: Normocephalic, atraumatic, bilateral external ears normal, clear rhinorrhea moist oropharynx Eyes: PERRLA, EOMI, conjunctiva normal, no discharge. [] Neck: Normal range of motion, no tenderness, supple, no stridor. [] Cardiovascular:Heart rate regular rhythm, no murmur [] Lungs & Thorax: Decreased breath sounds on the right. Rhonchi] Abdomen: Bowel sounds normal, soft, no tenderness, no masses, no pulsatile masses. [] Skin: Warm, dry, no erythema, no rash. [] Back: No tenderness, no CVA tenderness. [] Extremities: No tenderness, no cyanosis, no clubbing, ROM intact, no edema. [] Neurologic: Alert and oriented X 3, normal motor function, normal sensory function, no focal deficits noted. [] Psychologic: Affect normal, judgement normal, mood normal. [] EKG: EKG: [] Radiology/Procedures: Radiology/Procedures: []CT ABDOMEN+PELVIS WO History: Nausea, vomiting, fever. Comparison: CT abdomen and pelvis 01/22/2021. Technique: Noncontrast CT of the abdomen and pelvis. Findings: There is increasing tree-in-bud nodular opacities in the right middle lobe and bronchial wall thickening involving the right lower lobe with juxtapleural right lower lobe nodule measuring 1.3 cm diameter (axial 41), somewhat different in morphology from previously described right lower lobe nodule. Additional right lower lobe nodule measuring 0.6 cm diameter (axial 41). Soft tissue density surrounding the right lower lobe bronchus, partially visualized. Calcification at the right hilum. Heavy calcification of the coronary arteries. Punctate calcifications in the liver and spleen consistent with granulomatous disease. The gallbladder, pancreas, and adrenal glands are unremarkable. No nephrolithiasis or hydronephrosis. Left lower pole renal cortical defect or scarring. Moderate hiatal hernia with distal esophageal wall thickening. The small bowel is unremarkable. No colonic wall thickening or pericolonic inflammatory changes. Mild sigmoid diverticulosis. The uterus is surgically absent. Partially calcified 2.1 x 2.0 cm left ovary, similar to comparison. The bladder is incompletely distended without focal abnormality. Atherosclerotic calcification of aorta and iliac arteries. No abdominal pelvic adenopathy. Diffusely decreased osseous mineralization in the spine. No acute osseous abnormality. Soft tissues are unremarkable. Impression: 1. Increased soft tissue thickening surrounding the right inferior hilum with right middle lobe tree-in-bud nodular opacities, right lower lobe bronchial wall thickening and right lower lobe nodules, increased from comparison. Findings may be due to infectious or inflammatory disease, however CT of the chest with contrast is recommended to evaluate for malignancy. 2. Moderate hiatal hernia with thickening of the distal esophagus. Recommend correlation with endoscopy. 3. No acute inflammatory changes in the abdomen and pelvis. 4. 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 Discussed the case with hospitalist. Patient started on antibiotic Course & Med Decision Making: Course & Med Decision Making Pertinent Labs and Imaging studies reviewed. (See chart for details) [] Dragon Disclaimer: Dragon Disclaimer: This electronic medical record was generated, in whole or in part, using a voice recognition dictation system. Departure Departure Referrals: SAMMY BONILLA MD (PCP) LYNNETTE BROOKS DO Jan 08, 2022 09:52
[2022-01-08] MEDS ORDERED: IV NORMAL SALINE 500ML BAG 500 ML IV ONE (10:00)
[2022-01-08] MEDS ORDERED: ONDANSETRON PF 4 MG/2 ML VIAL. IVP ONE (10:00)
[2022-01-08 10:41] LABS: BASO # 0.1 x10^3/uL (0.0-0.2); BASO % 0 % (0-3); EOS # 0.1 x10^3/uL (0.0-0.7); EOS % 1 % (0-3); HEMATOCRIT 36.9 % (36.0-47.0); HEMOGLOBIN 12.4 g/dL (12.0-15.5); LYMPH # 0.7 x10^3/uL (1.0-4.8); LYMPH % 4 % (24-48); MEAN CORPUSCULAR HEMOGLOBIN 34 pg (25-35); MEAN CORPUSCULAR HGB CONC 34 g/dL (31-37); MEAN CORPUSCULAR VOLUME 101 fL (79-100); MONO % 6 % (0-9); NEUT # 14.2 x10^3/uL (1.8-7.7); NEUT % 89 % (31-73); PLATELET COUNT 242 x10^3/uL (140-400); RED BLOOD COUNT 3.65 x10^6/uL (3.50-5.40); RED CELL DISTRIBUTION WIDTH 14.2 % (11.5-14.5)
[2022-01-08 10:42] LABS: BACTERIA,URINE 0 /HPF (0-FEW); WBC,URINE OCC /HPF (0-4)
[2022-01-08 10:48] LABS: CALCIUM 9.7 mg/dL (8.5-10.1); CREATININE 1.6 mg/dL (0.6-1.0); GFR 30.7
[2022-01-08 10:54] LABS: ALBUMIN 3.9 g/dL (3.4-5.0); ALBUMIN/GLOBULIN RATIO 1.1 (1.0-1.7); TOTAL BILIRUBIN 0.7 mg/dL (0.2-1.0); TOTAL PROTEIN 7.4 g/dL (6.4-8.2)
[2022-01-08 11:22] LABS: INFLUENZA A PATIENT NEGATIVE (NEGATIVE); INFLUENZA B PATIENT NEGATIVE (NEGATIVE)
[2022-01-08 11:51] LABS: % BANDS 4 % (0-9); % EOS 1 % (0-5); % LYMPHS 3 % (24-48); % MONOS 3 % (0-10); % SEGS 89 % (35-66)
[2022-01-08 11:52] LABS: PLT ESTIMATE ADEQUATE (ADEQUATE)
--- NOTE | 2022-01-08 12:04 | RAD ---
XR CHEST 1V History: Cough Comparison: 01/22/2021 Technique: Portable AP radiograph of the chest. Findings: The lungs are adequately inflated. Increased interstitial opacities in the lung bases. No focal conso lidation, pleural effusion or pneumothorax. Suspect small hiatal hernia. The heart size is within nor mal limits. Osseous structures and soft tissues are unremarkable. Impression: 1. Increased pulmonary interstitial markings may represent atypical infectious process or mild vascu lar congestion/interstitial edema. Electronically signed by: Dieudonne Palomo MD (01/08/2022 12:02 PM) [id number]
--- NOTE | 2022-01-08 13:06 | RAD ---
CT ABDOMEN+PELVIS WO History: Nausea, vomiting, fever. Comparison: CT abdomen and pelvis 01/22/2021. Technique: Noncontrast CT of the abdomen and pelvis. Findings: There is increasing tree-in-bud nodular opacities in the right middle lobe and bronchial wall thicken ing involving the right lower lobe with juxtapleural right lower lobe nodule measuring 1.3 cm diamete r (axial 41), somewhat different in morphology from previously described right lower lobe nodule. Add itional right lower lobe nodule measuring 0.6 cm diameter (axial 41). Soft tissue density surrounding the right lower lobe bronchus, partially visualized. Calcification at the right hilum. Heavy calcifi cation of the coronary arteries. Punctate calcifications in the liver and spleen consistent with granulomatous disease. The gallbladde r, pancreas, and adrenal glands are unremarkable. No nephrolithiasis or hydronephrosis. Left lower po le renal cortical defect or scarring. Moderate hiatal hernia with distal esophageal wall thickening. The small bowel is unremarkable. No co lonic wall thickening or pericolonic inflammatory changes. Mild sigmoid diverticulosis. The uterus is surgically absent. Partially calcified 2.1 x 2.0 cm left ovary, similar to comparison. The bladder is incompletely distended without focal abnormality. Atherosclerotic calcification of aorta and iliac arteries. No abdominal pelvic adenopathy. Diffusely decreased osseous mineralization in the spine. No acute osseous abnormality. Soft tissues are unremar kable. Impression: 1. Increased soft tissue thickening surrounding the right inferior hilum with right middle lobe tree -in-bud nodular opacities, right lower lobe bronchial wall thickening and right lower lobe nodules, i ncreased from comparison. Findings may be due to infectious or inflammatory disease, however CT of th e chest with contrast is recommended to evaluate for malignancy. 2. Moderate hiatal hernia with thickening of the distal esophagus. Recommend correlation with endosc opy. 3. No acute inflammatory changes in the abdomen and pelvis. 4. Additional chronic findings including: Granulomatous disease in the liver and spleen, heavy coron joe artery calcification, sigmoid diverticulosis, and partially calcified left ovary. ------ Exposure: One or more of the following individualized dose reduction techniques were utilized for thi s examination: 1. Automated exposure control 2. Adjustment of the mA and/or kV according to patient size 3. Use of iterative reconstruction technique. Electronically signed by: Dieudonne Palomo MD (01/08/2022 1:04 PM) [id number]
[2022-01-08] MEDS ORDERED: CEFEPIME HCL IV Push 1 GM VIAL. IVP ONE (13:30)
[2022-01-08] MEDS ORDERED: VANCOMYCIN 1.5 GM in IV NORMAL SALINE 500ML BAG 500 ML IV ONE (14:00)
--- NOTE | 2022-01-08 14:26 | PDOC1 ---
History and Physical Date of Service: DOS: DATE: 01/08/22 TIME: 14:06 Chief Complaint: Chief Complain: Cough and nausea vomiting History of Present Illness: HPI: 86-year-old female with past medical history of GERD, hypertension and basal cell carcinoma who comes in for cough and nausea vomiting in the past day. Symptoms started yesterday abruptly and she also had some productive cough mixed with her spaghetti. She had continuous vomiting overnight. Denies fevers, chest pain, shortness of breath, abdominal pain, dysuria or hematuria or diarrhea. Patient presented the ED and chest x-ray showed possible right-sided pneumonia. CT of the abdomen pelvis completed was able to capture the lower lung paz and showed right hilar thickening with pulmonary nodules concerning for malignancy. For this reason patient is admitted for observation and treatment of pneumonia and rule out malignancy. Past Medical/Surgical History: PMH/PSH: Past Medical History: GERD, Hypertension, Renal Disease, skin cancer, kidney disease Past Surgical History: basal cell carcinoma removed, benign breast cyst removed Allergies: Allergies: Coded Allergies: Sulfa (Sulfonamide Antibiotics) (Verified Allergy, Intermediate, Unknown, 01/22/21) ciprofloxacin (Verified Allergy, Mild, Hives, 01/08/22) cephalexin (Verified Allergy, Unknown, Hives, 01/08/22) Uncoded Allergies: unspecified antibiotic (Allergy, Unknown, Unknown, 01/22/21) n Family History: Family History: Reviewed with no relative findings in the chart Social History: Social History: Smoking Status: Never Smoker Alcohol Use: None Drug Use: None Current Medications: Current Medications Current Medications Sodium Chloride 500 ml @ 500 mls/hr 1X ONCE IV Last administered on 01/08/22at 10:27; Start 01/08/22 at 10:00; Stop 01/08/22 at 10:59; Status DC Ondansetron HCl (Zofran) 4 mg 1X ONCE IVP Last administered on 01/08/22at 10:26 ; Start 01/08/22 at 10:00; Stop 01/08/22 at 10:08; Status DC Vancomycin HCl 1.5 gm/Sodium Chloride 500 ml @ 250 mls/hr 1X ONCE IV ; Start 01/08/22 at 14:00; Stop 01/08/22 at 15:59 Cefepime HCl (Maxipime) 1 gm 1X ONCE IVP ; Start 01/08/22 at 13:30; Stop 01/08/22 at 13:41; Status DC Active Scripts Active Ondansetron Odt (Ondansetron) 4 Mg Tab.rapdis 1 Tab PO PRN Q6-8HRS PRN 4 Days ROS: Review of Systems Review of System REVIEW OF SYSTEMS: GENERAL: Denies weakness SKIN: No bruising, hair changes or rashes. EYES: No blurred, double or loss of vision. NOSE AND THROAT: No history of nosebleeds, hoarseness or sore throat. HEART: No history of palpitations, chest pain or shortness of breath on exertion. LUNGS: Denies cough, hemoptysis, wheezing or shortness of breath. GASTROINTESTINAL: Nausea vomiting GENITOURINARY: No history of frequency, urgency, hesitancy or nocturia. NEUROLOGIC: Denies history of numbness, tingling, or tremor. PSYCHIATRIC: No history of panic, anxiety or depression. ENDOCRINE: No history of heat or cold intolerance, polyuria or polydipsia. EXTREMITIES: Denies joint pain, pain on walking or stiffness. Physical Exam: Vital Signs: Vital Signs Date Time Temp Pulse Resp B/P (MAP) Pulse Ox O2 Delivery O2 Flow Rate FiO2 01/08/22 12:42 68 16 132/78 (96) 95 Room Air 01/08/22 09:47 98.1 98.1 Physcial Exam: General: Well developed, well nourished, no acute distress, well appearing HEENT: Pupils equally round and reactive to light, EOMI, no discharge, normal conjunctiva Neck: Supple, no nuchal rigidity, no JVD, trachea midline, no tenderness Cardiac: RRR, no murmurs, no gallops, no rubs Chest/Lungs: CTAB, no wheeze, no rhonchi, no crackles Abdomen: soft, non-distended, no guarding, no peritoneal signs, non-tender Back: No tenderness Extremities: no edema, pulses intact, non-tender,capillary refill <3 sec bilateral upper and lower extremities, Neuro: Alert and oriented x 4, no focal deficits, normal speech Labs: Labs: Laboratory Tests Test 01/08/22 10:13 01/08/22 10:49 White Blood Count 16.0 x10^3/uL (4.0-11.0) Red Blood Count 3.65 x10^6/uL (3.50-5.40) Hemoglobin 12.4 g/dL (12.0-15.5) Hematocrit 36.9 % (36.0-47.0) Mean Corpuscular Volume 101 fL (79-100) Mean Corpuscular Hemoglobin 34 pg (25-35) Mean Corpuscular Hemoglobin Concent 34 g/dL (31-37) Red Cell Distribution Width 14.2 % (11.5-14.5) Platelet Count 242 x10^3/uL (140-400) Neutrophils (%) (Auto) 89 % (31-73) Lymphocytes (%) (Auto) 4 % (24-48) Monocytes (%) (Auto) 6 % (0-9) Eosinophils (%) (Auto) 1 % (0-3) Basophils (%) (Auto) 0 % (0-3) Neutrophils # (Auto) 14.2 x10^3/uL (1.8-7.7) Lymphocytes # (Auto) 0.7 x10^3/uL (1.0-4.8) Monocytes # (Auto) 1.0 x10^3/uL (0.0-1.1) Eosinophils # (Auto) 0.1 x10^3/uL (0.0-0.7) Basophils # (Auto) 0.1 x10^3/uL (0.0-0.2) Segmented Neutrophils % 89 % (35-66) Band Neutrophils % 4 % (0-9) Lymphocytes % 3 % (24-48) Monocytes % 3 % (0-10) Eosinophils % 1 % (0-5) Platelet Estimate Adequate (ADEQUATE) Urine Collection Type Unknown Urine Color (Auto) Light yellow Urine Turbidity Clear Urine pH (Auto) 6.0 (<5.0-8.0) Urine Specific [place] 1.014 (1.000-1.030) Urine Protein (Auto) 50 mg/dL (Negative) Urine Glucose (Auto)(UA) Negative mg/dL (Negative) Urine Ketones (Auto) Negative mg/dL (Negative) Urine Blood (Auto) Small (Negative) Urine Nitrite (Auto) Negative (Negative) Urine Bilirubin (Auto) Negative (Negative) Urine Urobilinogen (Auto) Normal mg/dL (Normal) Urine Leukocyte Esterase (Auto) Negative (Negative) Urine RBC 3-5 /HPF (0-2) Urine WBC Occ /HPF (0-4) Urine Squamous Epithelial Cells Occ /LPF Urine Bacteria 0 /HPF (0-FEW) Sodium Level 140 mmol/L (136-145) Potassium Level 4.0 mmol/L (3.5-5.1) Chloride Level 103 mmol/L (98-107) Carbon Dioxide Level 26 mmol/L (21-32) Anion Gap 11 (6-14) Blood Urea Nitrogen 29 mg/dL (7-20) Creatinine 1.6 mg/dL (0.6-1.0) Estimated GFR (Cockcroft-Gault) 30.7 BUN/Creatinine Ratio 18 (6-20) Glucose Level 133 mg/dL (70-99) Calcium Level 9.7 mg/dL (8.5-10.1) Total Bilirubin 0.7 mg/dL (0.2-1.0) Aspartate Amino Transf (AST/SGOT) 17 U/L (15-37) Alanine Aminotransferase (ALT/SGPT) 14 U/L (14-59) Alkaline Phosphatase 62 U/L (46-116) Total Protein 7.4 g/dL (6.4-8.2) Albumin 3.9 g/dL (3.4-5.0) Albumin/Globulin Ratio 1.1 (1.0-1.7) Lipase 128 U/L (73-393) Influenza Type A Antigen Negative (NEGATIVE) Influenza Type B Antigen Negative (NEGATIVE) SARS-CoV-2 Antigen (Rapid) Negative (NEGATIVE) Laboratory Tests Test 01/08/22 10:13 01/08/22 10:49 White Blood Count 16.0 x10^3/uL (4.0-11.0) Red Blood Count 3.65 x10^6/uL (3.50-5.40) Hemoglobin 12.4 g/dL (12.0-15.5) Hematocrit 36.9 % (36.0-47.0) Mean Corpuscular Volume 101 fL (79-100) Mean Corpuscular Hemoglobin 34 pg (25-35) Mean Corpuscular Hemoglobin Concent 34 g/dL (31-37) Red Cell Distribution Width 14.2 % (11.5-14.5) Platelet Count 242 x10^3/uL (140-400) Neutrophils (%) (Auto) 89 % (31-73) Lymphocytes (%) (Auto) 4 % (24-48) Monocytes (%) (Auto) 6 % (0-9) Eosinophils (%) (Auto) 1 % (0-3) Basophils (%) (Auto) 0 % (0-3) Neutrophils # (Auto) 14.2 x10^3/uL (1.8-7.7) Lymphocytes # (Auto) 0.7 x10^3/uL (1.0-4.8) Monocytes # (Auto) 1.0 x10^3/uL (0.0-1.1) Eosinophils # (Auto) 0.1 x10^3/uL (0.0-0.7) Basophils # (Auto) 0.1 x10^3/uL (0.0-0.2) Segmented Neutrophils % 89 % (35-66) Band Neutrophils % 4 % (0-9) Lymphocytes % 3 % (24-48) Monocytes % 3 % (0-10) Eosinophils % 1 % (0-5) Platelet Estimate Adequate (ADEQUATE) Urine Collection Type Unknown Urine Color (Auto) Light yellow Urine Turbidity Clear Urine pH (Auto) 6.0 (<5.0-8.0) Urine Specific [place] 1.014 (1.000-1.030) Urine Protein (Auto) 50 mg/dL (Negative) Urine Glucose (Auto)(UA) Negative mg/dL (Negative) Urine Ketones (Auto) Negative mg/dL (Negative) Urine Blood (Auto) Small (Negative) Urine Nitrite (Auto) Negative (Negative) Urine Bilirubin (Auto) Negative (Negative) Urine Urobilinogen (Auto) Normal mg/dL (Normal) Urine Leukocyte Esterase (Auto) Negative (Negative) Urine RBC 3-5 /HPF (0-2) Urine WBC Occ /HPF (0-4) Urine Squamous Epithelial Cells Occ /LPF Urine Bacteria 0 /HPF (0-FEW) Sodium Level 140 mmol/L (136-145) Potassium Level 4.0 mmol/L (3.5-5.1) Chloride Level 103 mmol/L (98-107) Carbon Dioxide Level 26 mmol/L (21-32) Anion Gap 11 (6-14) Blood Urea Nitrogen 29 mg/dL (7-20) Creatinine 1.6 mg/dL (0.6-1.0) Estimated GFR (Cockcroft-Gault) 30.7 BUN/Creatinine Ratio 18 (6-20) Glucose Level 133 mg/dL (70-99) Calcium Level 9.7 mg/dL (8.5-10.1) Total Bilirubin 0.7 mg/dL (0.2-1.0) Aspartate Amino Transf (AST/SGOT) 17 U/L (15-37) Alanine Aminotransferase (ALT/SGPT) 14 U/L (14-59) Alkaline Phosphatase 62 U/L (46-116) Total Protein 7.4 g/dL (6.4-8.2) Albumin 3.9 g/dL (3.4-5.0) Albumin/Globulin Ratio 1.1 (1.0-1.7) Lipase 128 U/L (73-393) Influenza Type A Antigen Negative (NEGATIVE) Influenza Type B Antigen Negative (NEGATIVE) SARS-CoV-2 Antigen (Rapid) Negative (NEGATIVE) Images: Images PROCEDURE: CT ABDOMEN PELVIS WO CONTRAST CT ABDOMEN+PELVIS WO History: Nausea, vomiting, fever. Comparison: CT abdomen and pelvis 01/22/2021. Technique: Noncontrast CT of the abdomen and pelvis. Findings: There is increasing tree-in-bud nodular opacities in the right middle lobe and bronchial wall thickening involving the right lower lobe with juxtapleural right lower lobe nodule measuring 1.3 cm diameter (axial 41), somewhat different in morphology from previously described right lower lobe nodule. Additional right lower lobe nodule measuring 0.6 cm diameter (axial 41). Soft tissue density surrounding the right lower lobe bronchus, partially visualized. Calcification at the right hilum. Heavy calcification of the coronary arteries. Punctate calcifications in the liver and spleen consistent with granulomatous disease. The gallbladder, pancreas, and adrenal glands are unremarkable. No nephrolithiasis or hydronephrosis. Left lower pole renal cortical defect or scarring. Moderate hiatal hernia with distal esophageal wall thickening. The small bowel is unremarkable. No colonic wall thickening or pericolonic inflammatory changes. Mild sigmoid diverticulosis. The uterus is surgically absent. Partially calcified 2.1 x 2.0 cm left ovary, similar to comparison. The bladder is incompletely distended without focal abnormality. Atherosclerotic calcification of aorta and iliac arteries. No abdominal pelvic adenopathy. Diffusely decreased osseous mineralization in the spine. No acute osseous abnormality. Soft tissues are unremarkable. Impression: 1. Increased soft tissue thickening surrounding the right inferior hilum with right middle lobe tree-in-bud nodular opacities, right lower lobe bronchial wall thickening and right lower lobe nodules, increased from comparison. Findings may be due to infectious or inflammatory disease, however CT of the chest with contrast is recommended to evaluate for malignancy. 2. Moderate hiatal hernia with thickening of the distal esophagus. Recommend correlation with endoscopy. 3. No acute inflammatory changes in the abdomen and pelvis. 4. 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 PROCEDURE: PORTABLE CHEST 1V XR CHEST 1V History: Cough Comparison: 01/22/2021 Technique: Portable AP radiograph of the chest. Findings: The lungs are adequately inflated. Increased interstitial opacities in the lung bases. No focal consolidation, pleural effusion or pneumothorax. Suspect small hiatal hernia. The heart size is within normal limits. Osseous structures and soft tissues are unremarkable. Impression: 1. Increased pulmonary interstitial markings may represent atypical infectious process or mild vascular congestion/interstitial edema. Assessment/Plan Assessment/Plan Pneumonia, possible gram-negative organisms Thickening of the right hilum and right lung pulmonary nodules concerning for malignancy STEPH due to vasomotor nephropathy Reactive leukocytosis Admit to hospitalist service for further management Pulmonology consult Continue empiric IV antibiotics Pending MRSA Legionella urine antigen Strict I/O monitor urine output Avoid nephrotoxic agents Lovenox for DVT prophylaxis Protonix GI prophylaxis ADA diet CODE STATUS full Discussed with RN and SW Disposition inpatient management as above DPOA: Daughter Justifications for Admission Other Justification RICARDO BRYANT MD Jan 08, 2022 14:26
[2022-01-08] MEDS ORDERED: diphenhydrAMINE HCL 25 MG CAPSULE PO PRN ×2 (14:30)
[2022-01-08] MEDS ORDERED: ZOLPIDEM 5 MG TABLET. PO PRN (14:30)
[2022-01-08] MEDS ORDERED: DOCUSATE SODIUM 100 MG CAPSULE. PO PRN (14:30)
[2022-01-08] MEDS ORDERED: SENNOSIDES 8.6 MG TABLET PO PRN (14:30)
[2022-01-08] MEDS ORDERED: diphenhydrAMINE 50 MG/ML VIAL IVP PRN (14:30)
[2022-01-08] MEDS ORDERED: LORazepam 0.5 MG TABLET PO PRN (14:30)
[2022-01-08] MEDS ORDERED: ACETAMINOPHEN 325 MG TABLET. PO PRN (14:30)
[2022-01-08] MEDS ORDERED: DEXTROSE 50% 25 GM / 50ML DISP.SYRIN. IV PRN (14:30)
[2022-01-08] MEDS ORDERED: PROCHLORPERAZINE 10 MG/2 ML VIAL. IV PRN (14:30)
[2022-01-08] MEDS ORDERED: ONDANSETRON PF 4 MG/2 ML VIAL. IVP PRN (14:30)
[2022-01-08] MEDS ORDERED: BENZONATATE 100 MG CAPSULE. PO ONE (15:15)
[2022-01-08] MEDS: IV NORMAL SALINE 1000ML BAG 1,000 ML IV SCH (16:46)
[2022-01-08] MEDS: CEFEPIME HCL IV Push 1 GM VIAL. IVP SCH (16:46)
[2022-01-08] MEDS: ENOXAPARIN 30 MG/0.3 ML SYRINGE. SQ SCH (16:47)
[2022-01-08] MEDS: VANCOMYCIN PER PHARMACY MC PRN (17:48)
--- NOTE | 2022-01-08 17:48 | NUR ---
Pharmacy Vancomycin Dosing Note S:Consulted to monitor and dose vancomycin started 01/08/22. O:JS NORMAN is a 86 year old F with Pneumonia . Height: 5 feet, 1 inches Weight: 61.2 kg Other Antibiotics: CEFEPIME 1 GR IV Q DAILY LABS: Last BUN: 29 Last Creatinine: 1.6 Creatinine Clearance: 21.9 mL/min Last WBC: 16 Tmax (past 24 hours): 98.1 Microbiology: NONE Drug Levels: Last level: No levels drawn yet Last dose given 01/08/22 at 1410 Vancomycin Dosing: Loading Dose: 1500 mg x1 Dosing Weight: Actual Target Trough: 15-20 A: Based on: P: 1. Maintenance Dose: Vancomycin 1000 mg IV q48h 2. If renal function improves, may change to Vancomycin 1000 mg IV q24h 3. Pharmacy will continue to monitor, follow and adjust therapy as needed. KRISTINA BIRCH RPH, 01/08/22 [id number]
[2022-01-08] MEDS ORDERED: FAMO20TA5 PO (18:16)
[2022-01-08] MEDS ORDERED: ALLO100T PO (18:16)
[2022-01-08] MEDS ORDERED: METO50TA4 PO (18:16)
[2022-01-08] MEDS ORDERED: LISI10TA16 PO (18:16)
--- NOTE | 2022-01-08 18:47 | NUR ---
Patient arrived via bed to room 524. Daughter at bedside. VSS. Patient's admission questions and home medications reviewed and charted at this time. Admission assessment still needs to be completed and will be passed on to next RN at this time. PRN zofran and benadryl given. Patient c/o feeling sick and itching to face. Will pass this along to Night RN to monitor.
[2022-01-08 19:00] VITALS: BP 132/53
[2022-01-08 23:53] VITALS: BP 126/55
[2022-01-09 03:14] VITALS: BP 129/58
[2022-01-09] MEDS: IV NORMAL SALINE 1000ML BAG 1,000 ML IV SCH ×3 (04:27→21:09)
[2022-01-09 07:00] VITALS: BP 130/56
[2022-01-09] MEDS ORDERED: IOHEXOL 300 MG/ML 100ML VIAL. IV ONE (07:15)
[2022-01-09] MEDS ORDERED: CONTRAST GIVEN. MC PRN (07:15)
[2022-01-09] MEDS: PANTOPRAZOLE 40 MG TABLET.DR. PO SCH (08:13)
--- NOTE | 2022-01-09 08:37 | PDOC ---
[facility] [facility] PROGRESS NOTE Date of Service DOS: DATE: 01/09/22 TIME: 08:34 Chief Complaint Chief Complaint Pneumonia, possible gram-negative organisms Thickening of the right hilum and right lung pulmonary nodules concerning for malignancy STEPH - likely due to vasomotor nephropathy Sepsis - due to pneumonia, given empiric antibiotics and fluids. Hypomagnesemia - will replace IV Hiatal hernia - on H2 deanna History of Present Illness History of Present Illness Ms Henderson is an 86-year-old female with past medical history of GERD, hypertension and basal cell carcinoma who comes in for cough and nausea vomiting in the past day. Symptoms started yesterday abruptly and she also had some productive cough mixed with her spaghetti. She had continuous vomiting overnight. Denies fevers, chest pain, shortness of breath, abdominal pain, dysuria or hematuria or diarrhea. Patient presented the ED and chest x-ray showed possible right-sided pneumonia. CT of the abdomen pelvis completed was able to capture the lower lung paz and showed right hilar thickening with pulmonary nodules concerning for malignancy. WBC 16, creatinine 1.6 01/09: To video swallow exam today with no clinical signs of aspiration. CT confirms right lower lobe pneumonia, magnesium low 1.7 still with productive cough. Of note in the ED she had swelling and redness after cefepime administration though initially this was thought to be due to vancomycin and clearly historically she and her other family members have a cephalosporin allergy been well documented. Consulting pharmacy for alternatives to cefepime for treatment for strep pneumonia for now will give IV doxycycline as this would be her eventual plan. Needs to remain inpatient for further treatment for pneumonia. Had some wheezing and pulmonary medicine is recommended bronchodilators Vitals/I&O Vitals/I&O: Vital Signs Date Time Temp Pulse Resp B/P (MAP) Pulse Ox O2 Delivery O2 Flow Rate FiO2 01/09/22 07:00 98.0 71 18 130/56 (80) 91 98.0 01/09/22 03:14 Room Air I & O 01/08/22 01/08/22 01/09/22 15:00 23:00 07:00 Intake Total 1138 ml Balance 1138 ml Physical Exam General: Alert, Oriented X3, Cooperative, mild distress Heart: Regular rate, Normal S1, Normal S2 Lungs: Wheezing, Crackles Abdomen: Normal bowel sounds Extremities: No clubbing, No cyanosis Skin: No rashes, No breakdown Labs Labs: Laboratory Tests Test 01/08/22 10:13 01/08/22 10:49 White Blood Count 16.0 x10^3/uL (4.0-11.0) Red Blood Count 3.65 x10^6/uL (3.50-5.40) Hemoglobin 12.4 g/dL (12.0-15.5) Hematocrit 36.9 % (36.0-47.0) Mean Corpuscular Volume 101 fL (79-100) Mean Corpuscular Hemoglobin 34 pg (25-35) Mean Corpuscular Hemoglobin Concent 34 g/dL (31-37) Red Cell Distribution Width 14.2 % (11.5-14.5) Platelet Count 242 x10^3/uL (140-400) Neutrophils (%) (Auto) 89 % (31-73) Lymphocytes (%) (Auto) 4 % (24-48) Monocytes (%) (Auto) 6 % (0-9) Eosinophils (%) (Auto) 1 % (0-3) Basophils (%) (Auto) 0 % (0-3) Neutrophils # (Auto) 14.2 x10^3/uL (1.8-7.7) Lymphocytes # (Auto) 0.7 x10^3/uL (1.0-4.8) Monocytes # (Auto) 1.0 x10^3/uL (0.0-1.1) Eosinophils # (Auto) 0.1 x10^3/uL (0.0-0.7) Basophils # (Auto) 0.1 x10^3/uL (0.0-0.2) Segmented Neutrophils % 89 % (35-66) Band Neutrophils % 4 % (0-9) Lymphocytes % 3 % (24-48) Monocytes % 3 % (0-10) Eosinophils % 1 % (0-5) Platelet Estimate Adequate (ADEQUATE) Urine Collection Type Unknown Urine Color (Auto) Light yellow Urine Turbidity Clear Urine pH (Auto) 6.0 (<5.0-8.0) Urine Specific [place] 1.014 (1.000-1.030) Urine Protein (Auto) 50 mg/dL (Negative) Urine Glucose (Auto)(UA) Negative mg/dL (Negative) Urine Ketones (Auto) Negative mg/dL (Negative) Urine Blood (Auto) Small (Negative) Urine Nitrite (Auto) Negative (Negative) Urine Bilirubin (Auto) Negative (Negative) Urine Urobilinogen (Auto) Normal mg/dL (Normal) Urine Leukocyte Esterase (Auto) Negative (Negative) Urine RBC 3-5 /HPF (0-2) Urine WBC Occ /HPF (0-4) Urine Squamous Epithelial Cells Occ /LPF Urine Bacteria 0 /HPF (0-FEW) Sodium Level 140 mmol/L (136-145) Potassium Level 4.0 mmol/L (3.5-5.1) Chloride Level 103 mmol/L (98-107) Carbon Dioxide Level 26 mmol/L (21-32) Anion Gap 11 (6-14) Blood Urea Nitrogen 29 mg/dL (7-20) Creatinine 1.6 mg/dL (0.6-1.0) Estimated GFR (Cockcroft-Gault) 30.7 BUN/Creatinine Ratio 18 (6-20) Glucose Level 133 mg/dL (70-99) Calcium Level 9.7 mg/dL (8.5-10.1) Total Bilirubin 0.7 mg/dL (0.2-1.0) Aspartate Amino Transf (AST/SGOT) 17 U/L (15-37) Alanine Aminotransferase (ALT/SGPT) 14 U/L (14-59) Alkaline Phosphatase 62 U/L (46-116) Total Protein 7.4 g/dL (6.4-8.2) Albumin 3.9 g/dL (3.4-5.0) Albumin/Globulin Ratio 1.1 (1.0-1.7) Lipase 128 U/L (73-393) Influenza Type A Antigen Negative (NEGATIVE) Influenza Type B Antigen Negative (NEGATIVE) SARS-CoV-2 Antigen (Rapid) Negative (NEGATIVE) Assessment and Plan Assessmemt and Plan Problems Medical Problems: (1) Pneumonia Status: Acute Comment Review of Relevant I have reviewed the following items julius (where applicable) has been applied. Medications: Current Medications Medications (Trade) Dose Ordered Sig/Jose Cruz Route PRN Reason Start Time Stop Time Status Last Admin Dose Admin Sodium Chloride 500 ml @ 500 mls/hr 1X ONCE IV 01/08/22 10:00 01/08/22 10:59 DC 01/08/22 10:27 Ondansetron HCl (Zofran) 4 mg 1X ONCE IVP 01/08/22 10:00 4/13/22 10:08 DC 01/08/22 10:26 Vancomycin HCl 1.5 gm/Sodium Chloride 500 ml @ 250 mls/hr 1X ONCE IV 01/08/22 14:00 01/08/22 15:59 DC 01/08/22 14:10 Cefepime HCl (Maxipime) 1 gm 1X ONCE IVP 01/08/22 13:30 01/08/22 13:41 DC 01/08/22 14:10 Ondansetron HCl (Zofran) 4 mg PRN Q6HRS PRN IVP NAUSEA/VOMITING, 1st CHOICE 01/08/22 14:30 01/08/22 18:28 Sodium Chloride 1,000 ml @ 100 mls/hr Q10H IV 01/08/22 15:00 01/09/22 04:27 Enoxaparin Sodium (Lovenox 30mg Syringe) 30 mg Q24H SQ 01/08/22 15:00 01/08/22 16:47 Pantoprazole Sodium (Protonix) 40 mg DAILYAC PO 01/09/22 07:30 01/09/22 08:13 Diphenhydramine HCl (Benadryl) 25 mg PRN Q6HRS PRN IVP ITCHING 01/08/22 14:30 01/08/22 18:28 Vancomycin HCl (Vanco Per Pharmacy) 1 each PRN DAILY PRN MC SEE COMMENTS 01/08/22 14:30 01/08/22 17:48 Cefepime HCl (Maxipime) 1 gm Q24H IVP 01/08/22 15:00 01/08/22 16:46 Benzonatate (Tessalon Perle) 100 mg 1X ONCE PO 01/08/22 15:15 01/08/22 15:17 DC 01/08/22 16:47 Justifications for Admission Other Justification Pneumonia ASMITA RAWLS MD Jan 09, 2022 08:36
[2022-01-09 08:41] LABS: BASO % 0 % (0-3); EOS # 0.4 x10^3/uL (0.0-0.7); EOS % 3 % (0-3); HEMATOCRIT 30.6 % (36.0-47.0); HEMOGLOBIN 10.3 g/dL (12.0-15.5); LYMPH # 1.7 x10^3/uL (1.0-4.8); LYMPH % 13 % (24-48); MEAN CORPUSCULAR HEMOGLOBIN 34 pg (25-35); MEAN CORPUSCULAR HGB CONC 34 g/dL (31-37); MEAN CORPUSCULAR VOLUME 102 fL (79-100); MONO # 1.1 x10^3/uL (0.0-1.1); MONO % 8 % (0-9); NEUT # 9.7 x10^3/uL (1.8-7.7); NEUT % 75 % (31-73); PLATELET COUNT 181 x10^3/uL (140-400); RED BLOOD COUNT 3.01 x10^6/uL (3.50-5.40); RED CELL DISTRIBUTION WIDTH 14.4 % (11.5-14.5); WHITE BLOOD COUNT 12.9 x10^3/uL (4.0-11.0)
[2022-01-09 08:56] LABS: ALBUMIN 2.9 g/dL (3.4-5.0); CALCIUM 8.3 mg/dL (8.5-10.1); CREATININE 1.4 mg/dL (0.6-1.0); GFR 35.8; MAGNESIUM 1.4 mg/dL (1.8-2.4); PHOSPHORUS 2.8 mg/dL (2.6-4.7); POTASSIUM 3.4 mmol/L (3.5-5.1); TOTAL BILIRUBIN 0.8 mg/dL (0.2-1.0); TOTAL PROTEIN 5.8 g/dL (6.4-8.2)
--- NOTE | 2022-01-09 10:11 | CONS ---
DATE OF CONSULTATION: 01/09/2022 PULMONARY CONSULTATION ATTENDING PHYSICIAN: Dr. Galicia. REASON FOR CONSULTATION: Pneumonia, abnormal CT of abdomen and pelvis. HISTORY OF PRESENT ILLNESS: The patient is an 86-year-old female who has never smoked cigarettes. She has history of GERD, hypertension and basal cell carcinoma. She came into the hospital with cough, nausea and vomiting. The patient states that she often times coughs after eating food. She says at this time, it was after eating spaghetti. The patient denies any shortness of breath. No chest pain, no fever, no abdominal pain, no dysuria, no diarrhea, no focal weakness. CT abdomen and pelvis was performed and was reviewed by me. The lower section of the lungs was reviewed. The patient has an increasing tree-in-bud nodular opacity in the right middle lobe and also bronchial wall thickening involving the right lower lobe. There is a right lower lobe nodule 1.3 cm in size posteromedially. The patient also had a 6 mm nodule in the right lower lobe as well. The patient has moderate size hiatal hernia. There is thickening of the distal esophagus. A consultation requested for further evaluation and management. There is also granulomatous disease in the liver and spleen. PAST MEDICAL HISTORY: Significant for history of GERD, hypertension, renal disease, skin cancer, basal cell carcinoma removed, benign breast cyst removed. PAST SURGICAL HISTORY: As discussed above. ALLERGIES: SULFA, CEPHALEXIN, CIPRO. MEDICATIONS: All reviewed including vancomycin and cefepime and Lovenox for DVT prophylaxis. REVIEW OF SYSTEMS: Twelve-point review of system obtained. Pertinent positives discussed in my history of present illness, otherwise noncontributory. All systems that were negative were reviewed as well. SOCIAL HISTORY: Nonsmoker. PHYSICAL EXAMINATION: VITAL SIGNS: Reviewed. Pulse ox 91% on room air. NECK: Supple. LUNGS: With faint occasional wheezes. CARDIOVASCULAR: With a regular rate. ABDOMEN: Soft, nontender. EXTREMITIES: With no pitting edema. LABORATORY DATA: Labs are reviewed. Her influenza negative. COVID rapid negative. Sodium 141, potassium 3.4. BUN and creatinine 22 and 1.4. White cell count 12.9, hemoglobin 10.3 and platelets are 181. IMPRESSION: 1. Abnormal CT chest, suspicious for chronic aspiration with another acute episode presenting with a cough, nausea, vomiting after eating spaghetti. The patient has increased soft tissue thickening surrounding the inferior right hilum and right middle lobe tree-in-bud nodular opacity. She also has a nodule in the right lower lobe posteromedially 1.3 cm in size. These findings are likely inflammatory. Risk for aspiration is considered high. 2. No significant tobaccoism. 3. Moderate sized hiatal hernia and thickening of the distal esophagus. Recommend Gastroenterology evaluation. RECOMMENDATIONS: 1. Discussed with the patient and the daughter. At this time, I would recommend doing a video swallow study. 2. Obtain full CT of the chest, which has been ordered. 3. GI consult and recommendation. 4. Follow speech recommendations after video swallow. 5. Continue present antibiotic. 6. Lovenox for DVT prophylaxis. 7. Discussed with the patient's daughter. OFE DR: Valentino TID: [id number]
[2022-01-09 10:40] VITALS: BP 131/51
[2022-01-09] MEDS: IPRATRPIUM/ALBUTEROL 0.5/2.5MG 3 ML NEBU. NEB SCH ×3 (11:18→20:49)
[2022-01-09] MEDS ORDERED: BARIUM SULFATE 40% (APPLE) 148 GM PWD. PO ONE (11:30)
--- NOTE | 2022-01-09 13:14 | RAD ---
CT THORAX WO History: Lung consolidation. Question malignancy. Comparison: CT abdomen and pelvis 01/25/2022, 01/22/2021 Technique: Noncontrast CT of the chest. Findings: Assessment is limited by lack of IV contrast. Cardiovascular: Normal caliber aorta with moderate calcification. Heavy coronary artery calcification . Heart size is normal. No pericardial effusion. Mediastinum and damien: Thyroid is unremarkable. Moderate hiatal hernia with wall thickening of the dis jackie esophagus. Shotty mediastinal lymph nodes including 6 mm prevascular lymph node 1. Right hilar ca lcified nodule. Right hilar soft tissue prominence likely lymph node enlargement, incompletely evalua rosa on noncontrast exam. Airways, lungs and pleura: Right middle and lower lobe predominant bronchial wall thickening. Posteri or segment right lower lobe consolidation adjacent to the pleural surface with some radiation to the hilum. This obscures or involves a previously described right lower lobe nodule. Tree-in-bud nodular opacities in the right middle lobe and to lesser extent right upper lobe. Mild dependent changes in t he left lower lobe. Trace pleural fluid bilaterally. Upper abdomen: Granulomatous calcifications in the spleen and liver. Osseous structures and soft tissues: Diffusely decreased osseous mineralization. No acute or suspicio us lesions. Impression: 1. Right lower lobe predominant bronchial wall thickening with prominence of the right hilar lymph n odes. Additional right lower lobe consolidation and tree-in-bud nodular opacities of the right middle and upper lobes. Findings may represent aspiration, infectious or inflammatory process however super imposed malignancy is not excluded, in the setting of obscured prior right lower lobe nodule. Recomme nd 3 month short interval follow-up CT of the chest with contrast if tolerated for reevaluation. 2. Moderate hiatal hernia with thickening of the distal esophagus. Correlate with reflux/aspiration risk and for esophagitis. 3. Heavy coronary artery calcification. ------ Exposure: One or more of the following individualized dose reduction techniques were utilized for thi s examination: 1. Automated exposure control 2. Adjustment of the mA and/or kV according to patient size 3. Use of iterative reconstruction technique. Electronically signed by: Dieudonne Palomo MD (01/09/2022 1:11 PM) [id number]
--- NOTE | 2022-01-09 13:32 | RAD ---
Exam: Video Swallowing Study History: Aspiration Comparison: None Procedure: Video fluoroscopy of the neck was performed from the lateral projection following ingesti on of various consistency barium which was administered by the speech pathologist. Fluoroscopy time: 1.5 minutes Total saved images/series: 1 Findings/ Impression: Laryngeal penetration: None Aspiration: None Please see speech pathology's report for further details of examination. Electronically signed by: Dieudonne Palomo MD (01/09/2022 1:30 PM) [id number]
[2022-01-09] MEDS: VANCOMYCIN PER PHARMACY MC PRN (14:02)
[2022-01-09] MEDS: ENOXAPARIN 30 MG/0.3 ML SYRINGE. SQ SCH (14:20)
--- NOTE | 2022-01-09 14:34 | NUR ---
SS following for discharge planning. SS reviewed pt chart and discussed with pt RN. Pt is currently on room air. COVID19 negative. Pt on IV Vancomycin and IV Cefepime. Pulmonology consulted. Video Swallow and ST evaluation today. SS will continue to follow for discharge planning.
[2022-01-09 15:00] VITALS: BP 141/58
[2022-01-09] MEDS ORDERED: POTASSIUM CHLORIDE 20 MEQ TABLET.ER. PO ONE (15:00)
[2022-01-09] MEDS ORDERED: MAGNESIUM SULFATE 2GM 50 ML IV ONE (15:00)
[2022-01-09] MEDS: CEFEPIME HCL IV Push 1 GM VIAL. IVP SCH (15:06)
[2022-01-09] MEDS ORDERED: CYANOCOBALAMIN (VITAMIN B-12) 1,000 MCG/ML VIAL. IM ONE (16:00)
[2022-01-09] MEDS: CLINDAMYCIN 600MG PREMIX 50 ML IV SCH ×2 (16:27→22:45)
[2022-01-09] MEDS: DOXYCYCLINE HYCLATE 100 MG in IV DEXTROSE 5% 100ML 100 ML IV SCH ×2 (16:27→21:10)
[2022-01-09] MEDS: METOPROLOL SUCC 24HR ER 50 MG TAB.ER.24H. PO SCH (17:04)
[2022-01-09 19:00] VITALS: BP 137/58
[2022-01-09] MEDS: LACTOBACILLUS RHAMNOSUS GG 1 CAPSULE. PO SCH (21:08)
[2022-01-09 23:00] VITALS: BP 158/68
[2022-01-10 03:00] VITALS: BP 166/64
[2022-01-10 05:22] LABS: BASO % 0 % (0-3); EOS # 0.5 x10^3/uL (0.0-0.7); EOS % 5 % (0-3); HEMATOCRIT 31.4 % (36.0-47.0); HEMOGLOBIN 10.5 g/dL (12.0-15.5); LYMPH # 1.8 x10^3/uL (1.0-4.8); LYMPH % 17 % (24-48); MEAN CORPUSCULAR HEMOGLOBIN 34 pg (25-35); MEAN CORPUSCULAR HGB CONC 34 g/dL (31-37); MEAN CORPUSCULAR VOLUME 102 fL (79-100); MONO % 9 % (0-9); NEUT # 7.3 x10^3/uL (1.8-7.7); NEUT % 69 % (31-73); PLATELET COUNT 192 x10^3/uL (140-400); RED BLOOD COUNT 3.09 x10^6/uL (3.50-5.40); RED CELL DISTRIBUTION WIDTH 14.2 % (11.5-14.5); WHITE BLOOD COUNT 10.6 x10^3/uL (4.0-11.0)
[2022-01-10] MEDS: CLINDAMYCIN 600MG PREMIX 50 ML IV SCH (05:49)
[2022-01-10] MEDS: IV NORMAL SALINE 1000ML BAG 1,000 ML IV SCH (05:50)
[2022-01-10 06:00] LABS: CALCIUM 8.6 mg/dL (8.5-10.1); CREATININE 1.5 mg/dL (0.6-1.0); GFR 33.1; MAGNESIUM 1.8 mg/dL (1.8-2.4); POTASSIUM 3.7 mmol/L (3.5-5.1)
[2022-01-10 07:00] VITALS: BP 153/58
[2022-01-10] MEDS: IPRATRPIUM/ALBUTEROL 0.5/2.5MG 3 ML NEBU. NEB SCH ×2 (07:31→11:46)
[2022-01-10] MEDS ORDERED: DOXY-181 PO (08:01)
[2022-01-10] MEDS ORDERED: CLIN-94 PO (08:01)
--- NOTE | 2022-01-10 08:03 | PDOC ---
[facility] PROGRESS NOTE Date of Service DOS: DATE: 01/10/22 TIME: 08:03 Chief Complaint Chief Complaint Pneumonia, possible gram-negative organisms Thickening of the right hilum and right lung pulmonary nodules concerning for malignancy STEPH - likely due to vasomotor nephropathy Sepsis - due to pneumonia, given empiric antibiotics and fluids. Hypomagnesemia - will replace IV Hiatal hernia - on H2 deanna History of Present Illness History of Present Illness Ms Henderson is an 86-year-old female with past medical history of GERD, hypertension and basal cell carcinoma who comes in for cough and nausea vomiting in the past day. Symptoms started yesterday abruptly and she also had some productive cough mixed with her spaghetti. She had continuous vomiting overnight. Denies fevers, chest pain, shortness of breath, abdominal pain, dysuria or hematuria or diarrhea. Patient presented the ED and chest x-ray showed possible right-sided pneumonia. CT of the abdomen pelvis completed was able to capture the lower lung paz and showed right hilar thickening with pulmonary nodules concerning for malignancy. WBC 16, creatinine 1.6 01/09: To video swallow exam today with no clinical signs of aspiration. CT confirms right lower lobe pneumonia, magnesium low 1.7 still with productive cough. Of note in the ED she had swelling and redness after cefepime administration though initially this was thought to be due to vancomycin and clearly historically she and her other family members have a cephalosporin allergy been well documented. Consulting pharmacy for alternatives to cefepime for treatment for strep pneumonia for now will give IV doxycycline as this would be her eventual plan. Needs to remain inpatient for further treatment for pneumonia. Had some wheezing and pulmonary medicine is recommended bronchodilators 01/10: Breathing and magnesium improved. Discussed patient transition to metoprolol and outpatient follow-up with pulmonology for repeat CT scan in 3 to 4 months as her bronchopneumonia is obscuring a pulmonary nodule. Magnesium improved will get back on oral magnesium and follow-up with nephrology as scheduled in 6 months. Vitals/I&O Vitals/I&O: Vital Signs Date Time Temp Pulse Resp B/P (MAP) Pulse Ox O2 Delivery O2 Flow Rate FiO2 01/10/22 07:32 97 Room Air 01/10/22 03:00 97.8 83 18 166/64 (98) 97.8 I & O 01/09/22 01/09/22 01/10/22 15:00 23:00 07:00 Intake Total 260 ml 200 ml Balance 260 ml 200 ml Physical Exam General: Alert, Oriented X3, Cooperative, mild distress Heart: Regular rate, Normal S1, Normal S2 Lungs: Wheezing, Crackles Abdomen: Normal bowel sounds Extremities: No clubbing, No cyanosis Skin: No rashes, No breakdown Labs Labs: Laboratory Tests Test 01/09/22 09:13 01/10/22 04:15 Vitamin B12 Level 383 pg/mL (247-911) White Blood Count 10.6 x10^3/uL (4.0-11.0) Red Blood Count 3.09 x10^6/uL (3.50-5.40) Hemoglobin 10.5 g/dL (12.0-15.5) Hematocrit 31.4 % (36.0-47.0) Mean Corpuscular Volume 102 fL (79-100) Mean Corpuscular Hemoglobin 34 pg (25-35) Mean Corpuscular Hemoglobin Concent 34 g/dL (31-37) Red Cell Distribution Width 14.2 % (11.5-14.5) Platelet Count 192 x10^3/uL (140-400) Neutrophils (%) (Auto) 69 % (31-73) Lymphocytes (%) (Auto) 17 % (24-48) Monocytes (%) (Auto) 9 % (0-9) Eosinophils (%) (Auto) 5 % (0-3) Basophils (%) (Auto) 0 % (0-3) Neutrophils # (Auto) 7.3 x10^3/uL (1.8-7.7) Lymphocytes # (Auto) 1.8 x10^3/uL (1.0-4.8) Monocytes # (Auto) 1.0 x10^3/uL (0.0-1.1) Eosinophils # (Auto) 0.5 x10^3/uL (0.0-0.7) Basophils # (Auto) 0.0 x10^3/uL (0.0-0.2) Sodium Level 141 mmol/L (136-145) Potassium Level 3.7 mmol/L (3.5-5.1) Chloride Level 107 mmol/L (98-107) Carbon Dioxide Level 24 mmol/L (21-32) Anion Gap 10 (6-14) Blood Urea Nitrogen 21 mg/dL (7-20) Creatinine 1.5 mg/dL (0.6-1.0) Estimated GFR (Cockcroft-Gault) 33.1 Glucose Level 96 mg/dL (70-99) Calcium Level 8.6 mg/dL (8.5-10.1) Magnesium Level 1.8 mg/dL (1.8-2.4) Assessment and Plan Assessmemt and Plan Problems Medical Problems: (1) Pneumonia Status: Acute Comment Review of Relevant I have reviewed the following items julius (where applicable) has been applied. Medications: Current Medications Medications (Trade) Dose Ordered Sig/Jose Cruz Route PRN Reason Start Time Stop Time Status Last Admin Dose Admin Albuterol/ Ipratropium (Duoneb) 3 ml RTQID NEB 01/09/22 12:00 01/10/22 07:31 Barium Sulfate (Varibar Thin Liquid Apple) 148 gm 1X ONCE PO 01/09/22 11:30 01/09/22 11:31 DC 01/09/22 11:30 Magnesium Sulfate 50 ml @ 25 mls/hr 1X ONCE IV 01/09/22 15:00 01/09/22 16:59 DC 01/09/22 15:06 Potassium Chloride (Klor-Con) 40 meq 1X ONCE PO 01/09/22 15:00 01/09/22 15:01 DC 01/09/22 15:06 Doxycycline Hyclate 100 mg/ Dextrose 100 ml @ 50 mls/hr Q12HR IV 01/09/22 16:00 01/09/22 21:10 Clindamycin Phosphate 50 ml @ 100 mls/hr Q8HRS IV 01/09/22 16:30 01/10/22 05:49 Cyanocobalamin (Vitamin B-12 Inj) 1,000 mcg 1X ONCE IM 01/09/22 16:00 01/09/22 16:01 DC 01/09/22 16:26 Lactobacillus Rhamnosus (Culturelle) 1 cap BID PO 01/09/22 21:00 01/09/22 21:08 Metoprolol Succinate (Toprol Xl) 25 mg DAILY PO 01/09/22 16:45 01/09/22 17:04 Justifications for Admission Other Justification Pneumonia ASMITA RAWLS MD Jan 10, 2022 08:03
[2022-01-10] MEDS: PANTOPRAZOLE 40 MG TABLET.DR. PO SCH (08:25)
[2022-01-10] MEDS: LACTOBACILLUS RHAMNOSUS GG 1 CAPSULE. PO SCH (08:25)
[2022-01-10] MEDS: METOPROLOL SUCC 24HR ER 50 MG TAB.ER.24H. PO SCH (08:26)
[2022-01-10] MEDS: DOXYCYCLINE HYCLATE 100 MG in IV DEXTROSE 5% 100ML 100 ML IV SCH (08:28)
--- NOTE | 2022-01-10 08:55 | PDOC ---
PULMONARY PROGRESS NOTES DATE: 01/10/22 TIME: 08:52 Subjective Feels better. Wants to go home. Video swallow does not show any aspiration Vitals Vital Signs Date Time Temp Pulse Resp B/P (MAP) Pulse Ox O2 Delivery O2 Flow Rate FiO2 01/10/22 08:26 67 153/58 01/10/22 07:32 97 Room Air 01/10/22 07:00 97.5 18 97.5 General: Alert, No acute distress Lungs: Clear Cardiovascular: S1 Abdomen: Soft Neuro Exam: Alert Extremities: No Edema Skin: Warm Labs Laboratory Tests Test 01/08/22 10:13 01/08/22 10:49 01/09/22 07:30 01/09/22 09:13 White Blood Count 16.0 x10^3/uL (4.0-11.0) 12.9 x10^3/uL (4.0-11.0) Red Blood Count 3.65 x10^6/uL (3.50-5.40) 3.01 x10^6/uL (3.50-5.40) Hemoglobin 12.4 g/dL (12.0-15.5) 10.3 g/dL (12.0-15.5) Hematocrit 36.9 % (36.0-47.0) 30.6 % (36.0-47.0) Mean Corpuscular Volume 101 fL (79-100) 102 fL (79-100) Mean Corpuscular Hemoglobin 34 pg (25-35) 34 pg (25-35) Mean Corpuscular Hemoglobin Concent 34 g/dL (31-37) 34 g/dL (31-37) Red Cell Distribution Width 14.2 % (11.5-14.5) 14.4 % (11.5-14.5) Platelet Count 242 x10^3/uL (140-400) 181 x10^3/uL (140-400) Neutrophils (%) (Auto) 89 % (31-73) 75 % (31-73) Lymphocytes (%) (Auto) 4 % (24-48) 13 % (24-48) Monocytes (%) (Auto) 6 % (0-9) 8 % (0-9) Eosinophils (%) (Auto) 1 % (0-3) 3 % (0-3) Basophils (%) (Auto) 0 % (0-3) 0 % (0-3) Neutrophils # (Auto) 14.2 x10^3/uL (1.8-7.7) 9.7 x10^3/uL (1.8-7.7) Lymphocytes # (Auto) 0.7 x10^3/uL (1.0-4.8) 1.7 x10^3/uL (1.0-4.8) Monocytes # (Auto) 1.0 x10^3/uL (0.0-1.1) 1.1 x10^3/uL (0.0-1.1) Eosinophils # (Auto) 0.1 x10^3/uL (0.0-0.7) 0.4 x10^3/uL (0.0-0.7) Basophils # (Auto) 0.1 x10^3/uL (0.0-0.2) 0.0 x10^3/uL (0.0-0.2) Segmented Neutrophils % 89 % (35-66) Band Neutrophils % 4 % (0-9) Lymphocytes % 3 % (24-48) Monocytes % 3 % (0-10) Eosinophils % 1 % (0-5) Platelet Estimate Adequate (ADEQUATE) Urine Collection Type Unknown Urine Color (Auto) Light yellow Urine Turbidity Clear Urine pH (Auto) 6.0 (<5.0-8.0) Urine Specific [place] 1.014 (1.000-1.030) Urine Protein (Auto) 50 mg/dL (Negative) Urine Glucose (Auto)(UA) Negative mg/dL (Negative) Urine Ketones (Auto) Negative mg/dL (Negative) Urine Blood (Auto) Small (Negative) Urine Nitrite (Auto) Negative (Negative) Urine Bilirubin (Auto) Negative (Negative) Urine Urobilinogen (Auto) Normal mg/dL (Normal) Urine Leukocyte Esterase (Auto) Negative (Negative) Urine RBC 3-5 /HPF (0-2) Urine WBC Occ /HPF (0-4) Urine Squamous Epithelial Cells Occ /LPF Urine Bacteria 0 /HPF (0-FEW) Sodium Level 140 mmol/L (136-145) 141 mmol/L (136-145) Potassium Level 4.0 mmol/L (3.5-5.1) 3.4 mmol/L (3.5-5.1) Chloride Level 103 mmol/L (98-107) 108 mmol/L (98-107) Carbon Dioxide Level 26 mmol/L (21-32) 25 mmol/L (21-32) Anion Gap 11 (6-14) 8 (6-14) Blood Urea Nitrogen 29 mg/dL (7-20) 22 mg/dL (7-20) Creatinine 1.6 mg/dL (0.6-1.0) 1.4 mg/dL (0.6-1.0) Estimated GFR (Cockcroft-Gault) 30.7 35.8 BUN/Creatinine Ratio 18 (6-20) 16 (6-20) Glucose Level 133 mg/dL (70-99) 91 mg/dL (70-99) Calcium Level 9.7 mg/dL (8.5-10.1) 8.3 mg/dL (8.5-10.1) Total Bilirubin 0.7 mg/dL (0.2-1.0) 0.8 mg/dL (0.2-1.0) Aspartate Amino Transf (AST/SGOT) 17 U/L (15-37) 19 U/L (15-37) Alanine Aminotransferase (ALT/SGPT) 14 U/L (14-59) 13 U/L (14-59) Alkaline Phosphatase 62 U/L (46-116) 46 U/L (46-116) Total Protein 7.4 g/dL (6.4-8.2) 5.8 g/dL (6.4-8.2) Albumin 3.9 g/dL (3.4-5.0) 2.9 g/dL (3.4-5.0) Albumin/Globulin Ratio 1.1 (1.0-1.7) 1.0 (1.0-1.7) Lipase 128 U/L (73-393) Influenza Type A Antigen Negative (NEGATIVE) Influenza Type B Antigen Negative (NEGATIVE) SARS-CoV-2 Antigen (Rapid) Negative (NEGATIVE) Phosphorus Level 2.8 mg/dL (2.6-4.7) Magnesium Level 1.4 mg/dL (1.8-2.4) Vitamin B12 Level 383 pg/mL (247-911) Test 01/09/22 12:15 01/10/22 04:15 Nasal Screen MRSA (PCR) Negative (NEGATIVE) White Blood Count 10.6 x10^3/uL (4.0-11.0) Red Blood Count 3.09 x10^6/uL (3.50-5.40) Hemoglobin 10.5 g/dL (12.0-15.5) Hematocrit 31.4 % (36.0-47.0) Mean Corpuscular Volume 102 fL (79-100) Mean Corpuscular Hemoglobin 34 pg (25-35) Mean Corpuscular Hemoglobin Concent 34 g/dL (31-37) Red Cell Distribution Width 14.2 % (11.5-14.5) Platelet Count 192 x10^3/uL (140-400) Neutrophils (%) (Auto) 69 % (31-73) Lymphocytes (%) (Auto) 17 % (24-48) Monocytes (%) (Auto) 9 % (0-9) Eosinophils (%) (Auto) 5 % (0-3) Basophils (%) (Auto) 0 % (0-3) Neutrophils # (Auto) 7.3 x10^3/uL (1.8-7.7) Lymphocytes # (Auto) 1.8 x10^3/uL (1.0-4.8) Monocytes # (Auto) 1.0 x10^3/uL (0.0-1.1) Eosinophils # (Auto) 0.5 x10^3/uL (0.0-0.7) Basophils # (Auto) 0.0 x10^3/uL (0.0-0.2) Sodium Level 141 mmol/L (136-145) Potassium Level 3.7 mmol/L (3.5-5.1) Chloride Level 107 mmol/L (98-107) Carbon Dioxide Level 24 mmol/L (21-32) Anion Gap 10 (6-14) Blood Urea Nitrogen 21 mg/dL (7-20) Creatinine 1.5 mg/dL (0.6-1.0) Estimated GFR (Cockcroft-Gault) 33.1 Glucose Level 96 mg/dL (70-99) Calcium Level 8.6 mg/dL (8.5-10.1) Magnesium Level 1.8 mg/dL (1.8-2.4) Laboratory Tests Test 01/09/22 09:13 01/09/22 12:15 01/10/22 04:15 Vitamin B12 Level 383 pg/mL (247-911) Nasal Screen MRSA (PCR) Negative (NEGATIVE) White Blood Count 10.6 x10^3/uL (4.0-11.0) Red Blood Count 3.09 x10^6/uL (3.50-5.40) Hemoglobin 10.5 g/dL (12.0-15.5) Hematocrit 31.4 % (36.0-47.0) Mean Corpuscular Volume 102 fL (79-100) Mean Corpuscular Hemoglobin 34 pg (25-35) Mean Corpuscular Hemoglobin Concent 34 g/dL (31-37) Red Cell Distribution Width 14.2 % (11.5-14.5) Platelet Count 192 x10^3/uL (140-400) Neutrophils (%) (Auto) 69 % (31-73) Lymphocytes (%) (Auto) 17 % (24-48) Monocytes (%) (Auto) 9 % (0-9) Eosinophils (%) (Auto) 5 % (0-3) Basophils (%) (Auto) 0 % (0-3) Neutrophils # (Auto) 7.3 x10^3/uL (1.8-7.7) Lymphocytes # (Auto) 1.8 x10^3/uL (1.0-4.8) Monocytes # (Auto) 1.0 x10^3/uL (0.0-1.1) Eosinophils # (Auto) 0.5 x10^3/uL (0.0-0.7) Basophils # (Auto) 0.0 x10^3/uL (0.0-0.2) Sodium Level 141 mmol/L (136-145) Potassium Level 3.7 mmol/L (3.5-5.1) Chloride Level 107 mmol/L (98-107) Carbon Dioxide Level 24 mmol/L (21-32) Anion Gap 10 (6-14) Blood Urea Nitrogen 21 mg/dL (7-20) Creatinine 1.5 mg/dL (0.6-1.0) Estimated GFR (Cockcroft-Gault) 33.1 Glucose Level 96 mg/dL (70-99) Calcium Level 8.6 mg/dL (8.5-10.1) Magnesium Level 1.8 mg/dL (1.8-2.4) Medications Active Scripts Medications Dose Route/Sig Max Daily Dose Days Date Category Clindamycin Hcl 300 Mg Capsule 1 Cap PO BID 7 01/10/22 Rx Doxycycline Monohydrate 100 Mg Capsule 1 Cap PO BID 7 01/10/22 Rx Famotidine 20 Mg Tablet 20 Mg PO BID 01/08/22 Reported Allopurinol 100 Mg Tablet 100 Mg PO DAILY 01/08/22 Reported Lisinopril 10 Mg Tablet 10 Mg PO DAILY 01/08/22 Reported Toprol XL (Metoprolol Succinate) 50 Mg Tab.er.24h 50 Mg PO DAILY 01/08/[address] chest reviewed Impression: 1. Right lower lobe predominant bronchial wall thickening with prominence of the right hilar lymph nodes. Additional right lower lobe consolidation and tree-in-bud nodular opacities of the right middle and upper lobes. Findings may represent aspiration, infectious or inflammatory process however superimposed malignancy is not excluded, in the setting of obscured prior right lower lobe nodule. Recommend 3 month short interval follow-up CT of the chest with contrast if tolerated for reevaluation. 2. Moderate hiatal hernia with thickening of the distal esophagus. Correlate with reflux/aspiration risk and for esophagitis. 3. Heavy coronary artery calcification. Impression . 1. Abnormal CT chest, suspicious for chronic aspiration with another acute episode presenting with a cough, nausea, vomiting after eating spaghetti. The patient has increased soft tissue thickening surrounding the inferior right hilum and right middle lobe tree-in-bud nodular opacity. She also has a nodule in the right lower lobe posteromedially 1.3 cm in size. These findings are likely inflammatory. Risk for aspiration is considered high. 2. No significant tobaccoism. 3. Moderate sized hiatal hernia and thickening of the distal esophagus. Recommend Gastroenterology evaluation. Plan . RECOMMENDATIONS: 1. Clinically feels better. 2. CT chest reviewed. Pneumonia involving the right lower lobe posterior medially. This may be obscuring the previously seen nodule. Would recommend follow-up CT chest in 3 to 4 months. 3. GI consult and recommendation. 4. No evidence of aspiration by video swallow. 5. Change to p.o. antibiotics. Patient can be discharged home. 6. Lovenox for DVT prophylaxis. 7. Follow-up CT chest in 3 to 4 months. ORLANDO BURNS MD Jan 10, 2022 08:55
[2022-01-10] MEDS ORDERED: ALLOPURINOL 100 MG TABLET. PO SCH (09:00)
[2022-01-10] MEDS ORDERED: MAGNESIUM SULFATE 1GM 100 ML IV ONE (09:00)
--- NOTE | 2022-01-10 09:02 | PDOC3 ---
Discharge Summary Visit Information Date of Admission: Jan 08, 2022 Date of Discharge: Jan 10, 2022 Admitting Diagnosis: Right lower lobe pneumonia Final Diagnosis Problems Medical Problems: (1) Pneumonia Status: Acute Brief Hospital Course Allergies Allergies Coded Allergies Type Severity Reaction Last Updated Verified Sulfa (Sulfonamide Antibiotics) Allergy Intermediate Unknown 01/22/21 Yes cefepime Allergy Intermediate hives 01/09/22 Yes ciprofloxacin Allergy Mild Hives 01/08/22 Yes cephalexin Allergy Unknown Hives 01/08/22 Yes Uncoded Allergies Type Severity Reaction Last Updated Verified unspecified antibiotic Allergy Unknown Unknown 01/22/21 Vital Signs Vital Signs Date Time Temp Pulse Resp B/P (MAP) Pulse Ox O2 Delivery O2 Flow Rate FiO2 01/10/22 08:26 67 153/58 01/10/22 07:32 97 Room Air 01/10/22 07:00 97.5 18 97.5 Lab Results Laboratory Tests Test 01/08/22 10:13 01/08/22 10:49 01/09/22 07:30 01/09/22 09:13 White Blood Count 16.0 x10^3/uL (4.0-11.0) 12.9 x10^3/uL (4.0-11.0) Red Blood Count 3.65 x10^6/uL (3.50-5.40) 3.01 x10^6/uL (3.50-5.40) Hemoglobin 12.4 g/dL (12.0-15.5) 10.3 g/dL (12.0-15.5) Hematocrit 36.9 % (36.0-47.0) 30.6 % (36.0-47.0) Mean Corpuscular Volume 101 fL (79-100) 102 fL (79-100) Mean Corpuscular Hemoglobin 34 pg (25-35) 34 pg (25-35) Mean Corpuscular Hemoglobin Concent 34 g/dL (31-37) 34 g/dL (31-37) Red Cell Distribution Width 14.2 % (11.5-14.5) 14.4 % (11.5-14.5) Platelet Count 242 x10^3/uL (140-400) 181 x10^3/uL (140-400) Neutrophils (%) (Auto) 89 % (31-73) 75 % (31-73) Lymphocytes (%) (Auto) 4 % (24-48) 13 % (24-48) Monocytes (%) (Auto) 6 % (0-9) 8 % (0-9) Eosinophils (%) (Auto) 1 % (0-3) 3 % (0-3) Basophils (%) (Auto) 0 % (0-3) 0 % (0-3) Neutrophils # (Auto) 14.2 x10^3/uL (1.8-7.7) 9.7 x10^3/uL (1.8-7.7) Lymphocytes # (Auto) 0.7 x10^3/uL (1.0-4.8) 1.7 x10^3/uL (1.0-4.8) Monocytes # (Auto) 1.0 x10^3/uL (0.0-1.1) 1.1 x10^3/uL (0.0-1.1) Eosinophils # (Auto) 0.1 x10^3/uL (0.0-0.7) 0.4 x10^3/uL (0.0-0.7) Basophils # (Auto) 0.1 x10^3/uL (0.0-0.2) 0.0 x10^3/uL (0.0-0.2) Segmented Neutrophils % 89 % (35-66) Band Neutrophils % 4 % (0-9) Lymphocytes % 3 % (24-48) Monocytes % 3 % (0-10) Eosinophils % 1 % (0-5) Platelet Estimate Adequate (ADEQUATE) Urine Collection Type Unknown Urine Color (Auto) Light yellow Urine Turbidity Clear Urine pH (Auto) 6.0 (<5.0-8.0) Urine Specific [place] 1.014 (1.000-1.030) Urine Protein (Auto) 50 mg/dL (Negative) Urine Glucose (Auto)(UA) Negative mg/dL (Negative) Urine Ketones (Auto) Negative mg/dL (Negative) Urine Blood (Auto) Small (Negative) Urine Nitrite (Auto) Negative (Negative) Urine Bilirubin (Auto) Negative (Negative) Urine Urobilinogen (Auto) Normal mg/dL (Normal) Urine Leukocyte Esterase (Auto) Negative (Negative) Urine RBC 3-5 /HPF (0-2) Urine WBC Occ /HPF (0-4) Urine Squamous Epithelial Cells Occ /LPF Urine Bacteria 0 /HPF (0-FEW) Sodium Level 140 mmol/L (136-145) 141 mmol/L (136-145) Potassium Level 4.0 mmol/L (3.5-5.1) 3.4 mmol/L (3.5-5.1) Chloride Level 103 mmol/L (98-107) 108 mmol/L (98-107) Carbon Dioxide Level 26 mmol/L (21-32) 25 mmol/L (21-32) Anion Gap 11 (6-14) 8 (6-14) Blood Urea Nitrogen 29 mg/dL (7-20) 22 mg/dL (7-20) Creatinine 1.6 mg/dL (0.6-1.0) 1.4 mg/dL (0.6-1.0) Estimated GFR (Cockcroft-Gault) 30.7 35.8 BUN/Creatinine Ratio 18 (6-20) 16 (6-20) Glucose Level 133 mg/dL (70-99) 91 mg/dL (70-99) Calcium Level 9.7 mg/dL (8.5-10.1) 8.3 mg/dL (8.5-10.1) Total Bilirubin 0.7 mg/dL (0.2-1.0) 0.8 mg/dL (0.2-1.0) Aspartate Amino Transf (AST/SGOT) 17 U/L (15-37) 19 U/L (15-37) Alanine Aminotransferase (ALT/SGPT) 14 U/L (14-59) 13 U/L (14-59) Alkaline Phosphatase 62 U/L (46-116) 46 U/L (46-116) Total Protein 7.4 g/dL (6.4-8.2) 5.8 g/dL (6.4-8.2) Albumin 3.9 g/dL (3.4-5.0) 2.9 g/dL (3.4-5.0) Albumin/Globulin Ratio 1.1 (1.0-1.7) 1.0 (1.0-1.7) Lipase 128 U/L (73-393) Influenza Type A Antigen Negative (NEGATIVE) Influenza Type B Antigen Negative (NEGATIVE) SARS-CoV-2 Antigen (Rapid) Negative (NEGATIVE) Phosphorus Level 2.8 mg/dL (2.6-4.7) Magnesium Level 1.4 mg/dL (1.8-2.4) Vitamin B12 Level 383 pg/mL (247-911) Test 01/09/22 12:15 01/10/22 04:15 Nasal Screen MRSA (PCR) Negative (NEGATIVE) White Blood Count 10.6 x10^3/uL (4.0-11.0) Red Blood Count 3.09 x10^6/uL (3.50-5.40) Hemoglobin 10.5 g/dL (12.0-15.5) Hematocrit 31.4 % (36.0-47.0) Mean Corpuscular Volume 102 fL (79-100) Mean Corpuscular Hemoglobin 34 pg (25-35) Mean Corpuscular Hemoglobin Concent 34 g/dL (31-37) Red Cell Distribution Width 14.2 % (11.5-14.5) Platelet Count 192 x10^3/uL (140-400) Neutrophils (%) (Auto) 69 % (31-73) Lymphocytes (%) (Auto) 17 % (24-48) Monocytes (%) (Auto) 9 % (0-9) Eosinophils (%) (Auto) 5 % (0-3) Basophils (%) (Auto) 0 % (0-3) Neutrophils # (Auto) 7.3 x10^3/uL (1.8-7.7) Lymphocytes # (Auto) 1.8 x10^3/uL (1.0-4.8) Monocytes # (Auto) 1.0 x10^3/uL (0.0-1.1) Eosinophils # (Auto) 0.5 x10^3/uL (0.0-0.7) Basophils # (Auto) 0.0 x10^3/uL (0.0-0.2) Sodium Level 141 mmol/L (136-145) Potassium Level 3.7 mmol/L (3.5-5.1) Chloride Level 107 mmol/L (98-107) Carbon Dioxide Level 24 mmol/L (21-32) Anion Gap 10 (6-14) Blood Urea Nitrogen 21 mg/dL (7-20) Creatinine 1.5 mg/dL (0.6-1.0) Estimated GFR (Cockcroft-Gault) 33.1 Glucose Level 96 mg/dL (70-99) Calcium Level 8.6 mg/dL (8.5-10.1) Magnesium Level 1.8 mg/dL (1.8-2.4) Laboratory Tests Test 01/09/22 09:13 01/09/22 12:15 01/10/22 04:15 Vitamin B12 Level 383 pg/mL (247-911) Nasal Screen MRSA (PCR) Negative (NEGATIVE) White Blood Count 10.6 x10^3/uL (4.0-11.0) Red Blood Count 3.09 x10^6/uL (3.50-5.40) Hemoglobin 10.5 g/dL (12.0-15.5) Hematocrit 31.4 % (36.0-47.0) Mean Corpuscular Volume 102 fL (79-100) Mean Corpuscular Hemoglobin 34 pg (25-35) Mean Corpuscular Hemoglobin Concent 34 g/dL (31-37) Red Cell Distribution Width 14.2 % (11.5-14.5) Platelet Count 192 x10^3/uL (140-400) Neutrophils (%) (Auto) 69 % (31-73) Lymphocytes (%) (Auto) 17 % (24-48) Monocytes (%) (Auto) 9 % (0-9) Eosinophils (%) (Auto) 5 % (0-3) Basophils (%) (Auto) 0 % (0-3) Neutrophils # (Auto) 7.3 x10^3/uL (1.8-7.7) Lymphocytes # (Auto) 1.8 x10^3/uL (1.0-4.8) Monocytes # (Auto) 1.0 x10^3/uL (0.0-1.1) Eosinophils # (Auto) 0.5 x10^3/uL (0.0-0.7) Basophils # (Auto) 0.0 x10^3/uL (0.0-0.2) Sodium Level 141 mmol/L (136-145) Potassium Level 3.7 mmol/L (3.5-5.1) Chloride Level 107 mmol/L (98-107) Carbon Dioxide Level 24 mmol/L (21-32) Anion Gap 10 (6-14) Blood Urea Nitrogen 21 mg/dL (7-20) Creatinine 1.5 mg/dL (0.6-1.0) Estimated GFR (Cockcroft-Gault) 33.1 Glucose Level 96 mg/dL (70-99) Calcium Level 8.6 mg/dL (8.5-10.1) Magnesium Level 1.8 mg/dL (1.8-2.4) Brief Hospital Course Ms Henderson is an 86-year-old female with past medical history of GERD, hypertension and basal cell carcinoma who comes in for cough and nausea vomiting in the past day. Symptoms started yesterday abruptly and she also had some productive cough mixed with her spaghetti. She had continuous vomiting o vernight. Denies fevers, chest pain, shortness of breath, abdominal pain, dysuria or hematuria or diarrhea. Patient presented the ED and chest x-ray showed possible right-sided pneumonia. CT of the abdomen pelvis completed was able to capture the lower lung paz and showed right hilar thickening with pulmonary nodules concerning for malignancy. WBC 16, creatinine 1.6 01/09: To video swallow exam today with no clinical signs of aspiration. CT confirms right lower lobe pneumonia, magnesium low 1.7 still with productive cough. Of note in the ED she had swelling and redness after cefepime administration though initially this was thought to be due to vancomycin and clearly historically she and her other family members have a cephalosporin allergy been well documented. Consulting pharmacy for alternatives to cefepime for treatment for strep pneumonia for now will give IV doxycycline as this would be her eventual plan. Needs to remain inpatient for further treatment for pneumonia. Had some wheezing and pulmonary medicine is recommended bronchodilators 01/10: Breathing and magnesium improved. Discussed patient transition to [facility] and outpatient follow-up with pulmonology for repeat CT scan in 3 to 4 months as her bronchopneumonia is obscuring a pulmonary nodule. Magnesium improved will get back on oral magnesium and follow-up with nephrology as scheduled in 6 months. 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 Hypomagnesemia - will replace PO Hiatal hernia - on H2 deanna Greater than 30 minutes spent on d/c home Discharge Information Condition at Discharge: Improved Follow Up: Weeks (1) Disposition/Orders: D/C to Home Scheduled Allopurinol (Allopurinol) 100 Mg Tablet, 100 MG PO DAILY for blood pressure, (Reported) Entered as Reported by: VINCENT GLYNN on 01/08/221815 Last Action: Continued on 01/09/221640 by ASMITA RAWLS MD Clindamycin Hcl (Clindamycin Hcl) 300 Mg Capsule, 1 CAP PO BID for Pneumonia for 7 Days, #14 Prescribed by: ASMITA RAWLS MD on 01/10/22 0801 Doxycycline Monohydrate (Doxycycline Monohydrate) 100 Mg Capsule, 1 CAP PO BID for Pneumonia for 7 Days, #14 Prescribed by: ASMITA RAWLS MD on 01/10/2201 Famotidine (Famotidine) 20 Mg Tablet, 20 MG PO BID for acid reflux, (Reported) Entered as Reported by: VINCENT GLYNN on 01/08/221815 Last Action: New Order on 01/08/221815 by VINCENT GLYNN Lisinopril (Lisinopril) 10 Mg Tablet, 10 MG PO DAILY for FOR HYPERTENSION, #30 Ref 0 (Reported) Entered as Reported by: VINCENT GLYNN on 01/08/221815 Last Action: New Order on 01/08/221815 by VINCENT GLYNN Metoprolol Succinate (Toprol XL) 50 Mg Tab.er.24h, 50 MG PO DAILY for FOR HYPERTENSION, (Reported) Entered as Reported by: VINCENT GLYNN on 01/08/221815 Last Action: Continued on 01/09/221640 by ASMITA RAWLS MD Justicifation of Admission Dx: Justifications for Admission: Justification of Admission Dx: Yes ASMITA RAWLS MD Jan 10, 2022 09:02
--- NOTE | 2022-01-10 10:48 | NUR ---
SS following up with discharge planning. SS reviewed pt chart and discussed with pt RN. Pt is currently on room air. PO diet. COVID19 negative. Home healthcare offered for home and pt declined services. Discharge order on the chart for home with self care.
[2022-01-10 11:00] VITALS: BP 142/58
--- NOTE | 2022-01-10 12:47 | NUR ---
Discharge Note: Patient was discharged home with self care. Patients IV was discontinued per RN without any complications. Patients daughter at the bedside at the time of discharge education. Patient was given discharge summary/instructions, follow-ups, and educational materials. Patients new prescriptions were sent to patients preferred pharmacy. Patient did not have any further questions or concerns. Patient was taken down to the main entrance via wheelchair with all personal belongings accompanied by US Jacklyn, where daughter was waiting for patient to take her home.
[2022-01-10] MEDS ORDERED: VANCOMYCIN 1 GM in IV NORMAL SALINE 250ML 250 ML IV SCH (14:00)
== END 2022-01-10 12:50 | disposition home or self-care (01) | DRG 871 ==
LOC: ER 09:30 → 5 NORTH 13:45
PROVIDERS: ADMIT Internal Medicine; ATTEND Internal Medicine
DX: A41.9 Sepsis, unspecified organism (principal); N17.0 Acute kidney failure with tubular necrosis; J15.6 Pneumonia due to other Gram-negative bacteria; D71 Functional disorders of polymorphonuclear neutrophils; E83.42 Hypomagnesemia; I10 Essential (primary) hypertension; I25.10 Atherosclerotic heart disease of native coronary artery without angina pectoris; I70.0 Atherosclerosis of aorta; I70.8 Atherosclerosis of other arteries; K21.00 Gastro-esophageal reflux disease with esophagitis, without bleeding; K44.9 Diaphragmatic hernia without obstruction or gangrene; K57.30 Diverticulosis of large intestine without perforation or abscess without bleeding; Z85.828 Personal history of other malignant neoplasm of skin; Z88.8 Allergy status to other drugs, medicaments and biological substances; Z20.822 Contact with and (suspected) exposure to COVID-19; Z88.2 Allergy status to sulfonamides
CPT/HCPCS: 36415; 71045; 71250; 74176; 74230; 80048; 80053; 81001; 82607; 83690; 83735; 84100; 85007; 85025; 87040; 87428; 87449; 87641; 94640; 94760; 96374; 96375; 96376; J0692; J1200; J1650; J2405; J3370; J3420; J3475; J3490; J7030; J7040; J7060; 92611-GN; 99285-25; G0378